=== PATIENT | female | born 1980 | race Caucasian/White ===

== ENCOUNTER 2022-09-26 06:13 | Observation (INO) ==
[2022-09-26] MEDS ORDERED: ONDANSETRON INJ 2 MG/ML 2 ML VIAL IV STA (06:33)
[2022-09-26] MEDS ORDERED: MoRPHine SULFATE 10 MG/ML CARP/VIAL IV STA ×2 (06:42→10:33)
[2022-09-26] MEDS ORDERED: SODIUM CHLORIDE 0.9% 1000ML 1,000 ML IV ONE ×2 (06:42→07:51)
--- NOTE | 2022-09-26 06:45 | Emergency Department Note ---
Impression & Plan Acute appendicitis, Leukocytosis ED Provider Note Name: SHAY BRANDON Age: 41 Sex: F Arrives Via: Walk-In Informant: Patient ED Provider: Micky Mcneil MD Chief Complaint: Abdominal pain Impression: As per impressions above Medical Decision Making: Pleasant 41-year-old female arrives for evaluation of abdominal pain. Primarily pain is upper abdomen though associate with nausea and dry heaves. She has upper abdominal tenderness palpation but also diffuse tenderness. She has a history of Rachele post fundoplication with splenectomy at that time. Laboratory work-up reveals a white blood cell count of 26. Initially a's ultrasound of the gallbladder was obtained which is unremarkable. She was sent over for CT of the abdomen pelvis which revealed acute appendicitis. Patient is comfortable throughout. She was given some IV fluids. In the setting of asplenia and elevated white blood cell count and infection I did obtain blood cultures and lactic acid. I will note she is not severe sepsis or septic shock at this time. She was given empiric IV Zosyn. She was kept comfortable with IV pain medications. Surgeon was consulted for further management. Triage/Nursing Notes reviewed by Me Differentials: Cholecystitis, Biliary Pathology, Pancreatitis, Appendicitis, diverticulitis, UTI, obstruction, mesenteric ischemia, aortic pathology, renal colic/infection, amongst others Vital Signs: reviewed and remarkable for no significant abnormalities Interventions: Normal saline bolus 1 L IV, Zosyn 4.5 g IV, Zofran IV, morphine IV x2 Labs:Reviewed and remarkable for white blood cell count 26,000 Imaging:CT of the ab pelvis with IV contrast as per radiologist report reveals acute appendicitis Ultrasound of the gallbladder no evidence of acute cholecystitis Consults:Dr Davis [place] Gen Surg Plan: Disposition:Taken to the OR Condition: Good History of Present Illness:41-year-old female arrives for evaluation of abdominal pain. Patient with sudden onset epigastric/right upper quadrant abdominal pain last evening at 9 PM. Associated with nausea, chills. She notes she has been dry heaving throughout the evening. Denies any falls, trauma, injuries. States she has a history of Niesen fundoplication with splenectomy. Still has her gallbladder and appendix. She denies previous pain like this. She does not drink alcohol. No medications prior to arrival. Nothing makes better or worse. Past History:He is in fundoplication with splenectomy Home Medications:none Allergies:erythromycin Vitals:Blood Pressure: 127/79, Pulse 73, RR 20, T 36.8C, O2 100% on RA Physical Exam: GENERAL: Patient is very uncomfortable appearing and in moderate distress. RESPIRATORY: No dyspnea. Clear to auscultation and equal bilaterally. No wheeze, no rhonchi. CARDIOVASCULAR: Regular rate and rhythm.No murmurs, rubs, gallops appreciated. GASTROINTESTINAL: Moderate epigastric tenderness palpation with mild right upper quadrant tenderness palpation as well as some mild diffuse tenderness throughout the rest of the abdomen EXTREMITIES: Normal motion all extremities, no cyanosis, no edema. NEUROLOGIC: Alert and oriented, no focal neurologic deficit appreciated SKIN: No rash, no jaundice, no diaphoresis. PSYCH: Appropriate GCS: 15 ED Course: Times/Reassessments: Patient is starting to feel better with IV pain medications though did end up requiring a second dose. Agreeable to hospitalization for appendectomy Micky Mcneil MD Past Med/Surg History Medical History (Updated 09/26/22 @ 12:52 by Micky Mcneil MD) COPD (chronic obstructive pulmonary disease) Surgical History (Updated 09/26/22 @ 11:22 by Baldo Iniguez MD) History of Rachele fundoplication Hx of splenectomy Social History Smoking Status: Never smoker Preferred Language: Bengali Feels Safe at Home: Yes Allergies Allergies Allergy/AdvReac Type Severity Reaction Status Date / Time azithromycin Allergy Gastrointestinal Verified 09/26/22 09:09 Upset Home Meds Home Medications Medication Instructions Recorded Confirmed albuterol sulfate 90 mcg/actuation 90 mcg inhalation DIRECTED PRN 09/26/22 09/26/22 aerosol inhaler Shortness Of Breath Or Wheezing Results & Data (ED) Vital Signs Vital Signs - 24 hr 09/26/22 06:25 09/26/22 06:59 09/26/22 08:00 Temperature 36.8 C Temperature Source Oral Pulse Rate 73 78 Pulse Rate [Apical] 55 L Pulse Rhythm [Apical] Pulse Strength [Apical] Respiratory Rate 20 16 Respiratory Effort / Characteristics Non-Labored Spontaneous Non-Labored Respiratory Depth Normal Normal Respiratory Pattern Regular Blood Pressure 127/79 Blood Pressure [Left Arm] 113/57 L Blood Pressure Mean 95 Blood Pressure Mean [Left Arm] 75 Blood Pressure Position [Left Arm] Lying Pulse Oximetry 100 99 Oxygen Delivery Method Room Air Room Air Oxygen Flow Rate Sepsis Recent Fever Within 48 Hours No Sepsis New/Unexplained Change in Mental Status No Sepsis Action Taken by Nursing No Action Required 09/26/22 10:45 09/26/22 10:00 09/26/22 10:55 Temperature Temperature Source Pulse Rate 68 Pulse Rate [Apical] 68 83 Pulse Rhythm [Apical] Pulse Strength [Apical] Respiratory Rate 18 18 18 Respiratory Effort / Characteristics Non-Labored Spontaneous Non-Labored Respiratory Depth Normal Normal Respiratory Pattern Regular Regular Blood Pressure 114/78 Blood Pressure [Left Arm] 114/78 124/89 Blood Pressure Mean Blood Pressure Mean [Left Arm] 90 100 Blood Pressure Position [Left Arm] Lying Lying Pulse Oximetry 97 98 97 Oxygen Delivery Method Room Air Room Air Room Air Oxygen Flow Rate Sepsis Recent Fever Within 48 Hours Sepsis New/Unexplained Change in Mental Status Sepsis Action Taken by Nursing 09/26/22 12:26 09/26/22 12:35 09/26/22 12:45 Temperature 36.2 C L Temperature Source Temporal Artery Scan Pulse Rate Pulse Rate [Apical] 88 77 77 Pulse Rhythm [Apical] Regular Regular Regular Pulse Strength [Apical] Normal Normal Normal Respiratory Rate 14 18 18 Respiratory Effort / Characteristics Non-Labored Spontaneous Non-Labored Spontaneous Non-Labored Spontaneous Respiratory Depth Normal Normal Normal Respiratory Pattern Regular Regular Regular Blood Pressure Blood Pressure [Left Arm] 112/72 104/63 109/64 Blood Pressure Mean Blood Pressure Mean [Left Arm] 85 76 79 Blood Pressure Position [Left Arm] Semi-fowlers Semi-fowlers Semi-fowlers Pulse Oximetry 100 100 99 Oxygen Delivery Method Oxymask Oxymask Room Air Oxygen Flow Rate 6 6 Sepsis Recent Fever Within 48 Hours Sepsis New/Unexplained Change in Mental Status Sepsis Action Taken by Nursing Laboratory Data 09/26/22 06:41 09/26/22 06:41 Lab Results 09/26/22 09/26/22 09/26/22 Range/Units 06:41 06:41 06:41 WBC 26.48 H (4.8-10.8) K/ul RBC 4.12 L (4.20-5.40) M/uL Hgb 14.0 (12.0-16.0) g/dl Hct 40.2 (37.0-47.0) % MCV 97.6 (80.0-100.0) fL MCH 34.0 (25.0-34.0) pg MCHC 34.8 (32.0-36.0) g/dL RDW Std Deviation 44.9 (36.4-46.3) fL RDW Coeff of Jacek 12.6 (11.5-14.5) % Plt Count 407 H (130-400) K/uL MPV 10.0 (9.4-12.4) fL Immature Gran % (Auto) 0.5 % Neut % (Auto) 83.8 % Lymph % (Auto) 11.0 % [place] % (Auto) 4.3 % Eos % (Auto) 0.0 % Baso % (Auto) 0.4 % Neut # (Auto) 22.18 H (1.40-6.50) K/uL Lymph # (Auto) 2.90 (1.2-3.4) K/uL [place] # (Auto) 1.14 H (0.11-0.59) K/uL Eos # (Auto) 0.01 (0-0.50) K/uL Baso # (Auto) 0.11 (0-0.2) K/uL Immature Gran # (Auto) 0.14 (0.01-0.20) K/uL Sodium 135 L (136-145) mmol/L Potassium 3.6 (3.5-5.1) mmol/L Chloride 103 (98-107) mmol/L Carbon Dioxide 24 (21-32) mmol/L Anion Gap 8 (3-11) BUN 14 (6-23) mg/dl Creatinine 0.67 (0.6-1.2) mg/dl Est Cr Clr Drug Dosing Not Reportable Est GFR ( Amer) 127.4 ml/min Est GFR (Non-Af Amer) 110.0 ml/min BUN/Creatinine Ratio 20.9 H (10-20) Glucose 137 H (70-99(Fasting)) mg/dl Lactate (0.4-2.0) mmol/L Calcium 9.9 (8.6-10.3) mg/dl Total Bilirubin 0.6 (0.2-1.0) mg/dl AST 41 H (13-39) U/L ALT 48 (7-52) U/L Alkaline Phosphatase 110 H (34-104) U/L Total Protein 8.1 (6.0-8.3) gm/dl Albumin 4.6 (3.4-5.0) gm/dl Globulin 3.5 (2.5-4.0) gm/dl Albumin/Globulin Ratio 1.3 (0.9-2) Lipase 26 (11-82) U/L Procalcitonin (0-0.5) ng/ml HCG, Qual Negative (Negative) Urine Color Urine Appearance (Clear) Urine pH (4.5-7.5) Ur Specific [place] (1.000-1.030) Urine Protein (Negative) Urine Glucose (UA) (Negative) Urine Ketones (Negative) Urine Blood (Negative) Urine Nitrite (Negative) Urine Bilirubin (Negative) Urine Urobilinogen (Negative) Ur Leukocyte Esterase (Negative) 09/26/22 09/26/22 09/26/22 Range/Units 08:10 08:24 08:24 WBC (4.8-10.8) K/ul RBC (4.20-5.40) M/uL Hgb (12.0-16.0) g/dl Hct (37.0-47.0) % MCV (80.0-100.0) fL MCH (25.0-34.0) pg MCHC (32.0-36.0) g/dL RDW Std Deviation (36.4-46.3) fL RDW Coeff of Jacek (11.5-14.5) % Plt Count (130-400) K/uL MPV (9.4-12.4) fL Immature Gran % (Auto) % Neut % (Auto) % Lymph % (Auto) % [place] % (Auto) % Eos % (Auto) % Baso % (Auto) % Neut # (Auto) (1.40-6.50) K/uL Lymph # (Auto) (1.2-3.4) K/uL [place] # (Auto) (0.11-0.59) K/uL Eos # (Auto) (0-0.50) K/uL Baso # (Auto) (0-0.2) K/uL Immature Gran # (Auto) (0.01-0.20) K/uL Sodium (136-145) mmol/L Potassium (3.5-5.1) mmol/L Chloride (98-107) mmol/L Carbon Dioxide (21-32) mmol/L Anion Gap (3-11) BUN (6-23) mg/dl Creatinine (0.6-1.2) mg/dl Est Cr Clr Drug Dosing Est GFR ( Amer) ml/min Est GFR (Non-Af Amer) ml/min BUN/Creatinine Ratio (10-20) Glucose (70-99(Fasting)) mg/dl Lactate 1.8 (0.4-2.0) mmol/L Calcium (8.6-10.3) mg/dl Total Bilirubin (0.2-1.0) mg/dl AST (13-39) U/L ALT (7-52) U/L Alkaline Phosphatase (34-104) U/L Total Protein (6.0-8.3) gm/dl Albumin (3.4-5.0) gm/dl Globulin (2.5-4.0) gm/dl Albumin/Globulin Ratio (0.9-2) Lipase (11-82) U/L Procalcitonin 0.08 (0-0.5) ng/ml HCG, Qual (Negative) Urine Color Yellow Urine Appearance Clear (Clear) Urine pH 6.5 (4.5-7.5) Ur Specific [place] 1.010 (1.000-1.030) Urine Protein Negative (Negative) Urine Glucose (UA) Negative (Negative) Urine Ketones Negative (Negative) Urine Blood Negative (Negative) Urine Nitrite Negative (Negative) Urine Bilirubin Negative (Negative) Urine Urobilinogen Negative (Negative) Ur Leukocyte Esterase Negative (Negative) Administered Medications Discontinued Medications Bupivacaine HCl/Epinephrine Bitart (Bupivacaine/Epinephrine 0.5% Mpf 1:200,000 30 Ml Vial) Confirm Administered Dose 30 ml .ROUTE .STK-MED ONE Stop: 09/26/22 09:34 Last Admin: 09/26/22 11:59 Dose: 30 ml Documented By: LONG Sodium Chloride (Nss 1000ml) 1,000 mls @ 999 mls/hr IV .Q1H1M ONE Stop: 09/26/22 07:42 Last Infusion: 09/26/22 07:56 Dose: 0 mls/hr Documented By: Admin: 09/26/22 06:47 Dose: 999 mls/hr Documented By: ELVI Piperacillin Sod/Tazobactam Sod (Zosyn) 4.5 gm in 120 mls @ 240 mls/hr IV NOW ONE Stop: 09/26/22 08:20 Last Infusion: 09/26/22 10:30 Dose: 0 mls/hr Documented By: Admin: 09/26/22 10:03 Dose: 240 mls/hr Documented By: SERGE Sodium Chloride (Nss 1000ml) 1,000 mls @ 999 mls/hr IV .Q1H1M ONE Stop: 09/26/22 08:51 Last Infusion: 09/26/22 10:30 Dose: 0 mls/hr Documented By: Admin: 09/26/22 07:58 Dose: 999 mls/hr Documented By: SERGE Ioversol (Optiray 320 100ml) 94 ml IV ONCE ONE Stop: 09/26/22 08:19 Last Admin: 09/26/22 08:18 Dose: 94 ml Documented By: GAIL Morphine Sulfate (Morphine Sulfate 10 Mg/Ml Carp/Vial) 6 mg IV NOW STA Stop: 09/26/22 06:43 Last Admin: 09/26/22 06:47 Dose: 6 mg Documented By: ELVI Morphine Sulfate (Morphine Sulfate 10 Mg/Ml Carp/Vial) 6 mg IV NOW STA Stop: 09/26/22 10:34 Last Admin: 09/26/22 10:39 Dose: 6 mg Documented By: JULI Ondansetron HCl (Ondansetron Inj 2 Mg/Ml 2 Ml Vial) 4 mg IV NOW STA Stop: 09/26/22 06:34 Last Admin: 09/26/22 06:47 Dose: 4 mg Documented By: ELVI Imaging Data Radiologist's Impression: Gallbladder Ultrasound 09/26/22 06:42 US gallbladder CLINICAL HISTORY: RUQ/Epigastric pain TECHNIQUE: Multiple real-time sonographic images of the right upper quadrant were obtained. Comparison: None available at the time of this dictation. FINDINGS: The liver is diffusely homogenous with normal contour and echogenicity. No focal mass lesions are seen. No intrahepatic ductal dilatation is seen. No gallstones or sludge are identified within the gallbladder. The gallbladder wall is not thickened. There is no pericholecystic fluid present. A sonographic Rico's sign was not elicited by the bedspread inspector. The common duct measures 0.4 cm in diameter at the level of the hepatic artery. The visualized portions of the pancreas appear normal. The right kidney shows normal echogenicity, cortical thickness and renal contour. The right kidney shows no evidence of hydronephrosis or mass. No ascites or free fluid is seen in Pichardo's pouch. IMPRESSION: Unremarkable right upper quadrant ultrasound. ACT 112: Negative or not required by law. Electronically signed by: Brent Nugyen M.D. 09/26/2022 8:20 AM Abdomen/Pelvis CT 09/26/22 07:52 CT abd pelvis IV con only CLINICAL HISTORY: upper abdominal pain, fever, wbc elevation TECHNIQUE: Helical axial images of the abdomen and pelvis were obtained and displayed. Automated dose lowering techniques and/or adjustment according to patient size were utilized for this exam. This exam was performed with intravenous contrast. CT DOSE: 1447.08 mGy.cm COMPARISON: None available at the time of this dictation. FINDINGS: Lower chest: No acute abnormality. Liver: Unremarkable. No focal lesions are seen. Gallbladder and biliary tree: No calcified gallstones. Normal caliber wall. No intra- or extrahepatic biliary ductal dilation. Pancreas: Unremarkable, no focal lesions. Spleen: Patient appears to be status post splenectomy with a tiny residual splenule. Adrenals: Unremarkable. Kidneys and ureters: Unremarkable. Bladder: Unremarkable. Reproductive organs: Uterus is retroverted. Bowel: The appendix is dilated to 13 mm with a small amount of surrounding fat stranding. There is a moderate hiatal hernia in this patient with history of Rachele fundoplication. Lymph nodes Retroperitoneal: Unremarkable. Pelvic: Unremarkable. Mesenteric: Nodes are seen in the right lower quadrant. Peritoneum: Normal. Vessels: Unremarkable. Abdominal wall: A fat-containing umbilical hernia is seen. Bones: Degenerative changes in the visualized spine. IMPRESSION: Findings compatible with appendicitis without abscess or perforation. ACT 112: Negative or not required by law. Electronically signed by: Brent Nguyen M.D. 09/26/2022 8:39 AM Discharge Plan Visit Data Chief Complaint: Abdominal Pain Stated Complaint: ABD PAIN, CHILLS, NAUSEA ED Provider: Micky Mcneil Discharge Problem: Acute appendicitis, Leukocytosis Discharge Instructions Interventions: ED Discharge Assessment Last Done: 09/26/22 10:55 Forms Stand Alone Forms: [employer] Prescriptions Prescriptions: No Action albuterol sulfate 90 mcg/actuation HFA aerosol inhaler 90 mcg INHALATION DIRECTED PRN (Reason: Shortness Of Breath Or Wheezing) Referrals Referrals: PCP,NO [Physician] -
[2022-09-26 07:07] LABS: Hematocrit (blood only) 40.2 % (37.0-47.0); Mean Corpuscular Hgb Conc 34.8 g/dL (32.0-36.0); Mean Corpuscular Volume 97.6 fL (80.0-100.0); Platelet Count 407 K/uL (130-400); RDW Coefficient of Variation 12.6 % (11.5-14.5); RDW Standard Deviation 44.9 fL (36.4-46.3); Red Blood Count 4.12 M/uL (4.20-5.40); White Blood Count 26.48 K/ul (4.8-10.8)
[2022-09-26 07:23] LABS: Alanine Aminotransferase 48 U/L (7-52); Albumin Globulin Ratio 1.3 (0.9-2); Albumin Level 4.6 gm/dl (3.4-5.0); Alkaline Phosphatase 110 U/L (34-104); Anion Gap 8 (3-11); Aspartate Aminotransferase 41 U/L (13-39); BUN Creatinine Ratio 20.9 (10-20); Bilirubin,Total 0.6 mg/dl (0.2-1.0); Blood Urea Nitrogen 14 mg/dl (6-23); Calcium 9.9 mg/dl (8.6-10.3); Carbon Dioxide 24 mmol/L (21-32); Chloride 103 mmol/L (98-107); Est GFR (African American) 127.4 ml/min; Globulin 3.5 gm/dl (2.5-4.0); Glucose 137 mg/dl (70-99(Fasting)); Lipase 26 U/L (11-82); Potassium 3.6 mmol/L (3.5-5.1); Sodium 135 mmol/L (136-145); Total Protein 8.1 gm/dl (6.0-8.3)
[2022-09-26 07:24] LABS: Pregnancy Test, Serum Negative (Negative)
[2022-09-26 07:35] LABS: Basophils # (auto) 0.11 K/uL (0-0.2); Basophils % (auto) 0.4 %; Eosinophils # (auto) 0.01 K/uL (0-0.50); Immature Granulocytes # (auto) 0.14 K/uL (0.01-0.20); Immature Granulocytes % (auto) 0.5 %; Monocytes # (auto) 1.14 K/uL (0.11-0.59); Monocytes % (auto) 4.3 %; Neutrophils # (auto) 22.18 K/uL (1.40-6.50); Neutrophils % (auto) 83.8 %
[2022-09-26] MEDS ORDERED: PIPERACILLIN/TAZOBACTAM 4.5 GM/120 ML BAG IV ONE (07:51)
[2022-09-26] MEDS ORDERED: OPTIRAY 320 100ml IV ONE (08:18)
--- NOTE | 2022-09-26 08:21 | Ultrasound Report ---
US gallbladder CLINICAL HISTORY: RUQ/Epigastric pain TECHNIQUE: Multiple real-time sonographic images of the right upper quadrant were obtained. Comparison: None available at the time of this dictation. FINDINGS: The liver is diffusely homogenous with normal contour and echogenicity. No focal mass lesions are see n. No intrahepatic ductal dilatation is seen. No gallstones or sludge are identified within the g allbladder. The gallbladder wall is not thickened. There is no pericholecystic fluid present. A sonog raphic Rico's sign was not elicited by the lacquerer. The common duct measures 0.4 cm in diamet er at the level of the hepatic artery. The visualized portions of the pancreas appear normal. The right kidney shows normal echogenicity, cortical thickness and renal contour. The right kidney sh ows no evidence of hydronephrosis or mass. No ascites or free fluid is seen in Pichardo's pouch. IMPRESSION: Unremarkable right upper quadrant ultrasound. ACT 112: Negative or not required by law. Electronically signed by: Brent Nguyen M.D. 09/26/2022 8:20 AM
[2022-09-26 08:33] LABS: Appearance Urine Clear (Clear); Bilirubin Urine Negative (Negative); Blood Urine Negative (Negative); Color Urine Yellow; Glucose Urine UA Negative (Negative); Ketones Urine Negative (Negative); Leukocyte Esterase Urine Negative (Negative); Nitrite Urine Negative (Negative); Protein Urine Negative (Negative); Urobilinogen Urine Negative (Negative); pH Urine 6.5 (4.5-7.5)
--- NOTE | 2022-09-26 08:41 | CT Scan Report ---
CT abd pelvis IV con only CLINICAL HISTORY: upper abdominal pain, fever, wbc elevation TECHNIQUE: Helical axial images of the abdomen and pelvis were obtained and displayed. Automated dose lowering techniques and/or adjustment according to patient size were utilized for this exam. This e xam was performed with intravenous contrast. CT DOSE: 1447.08 mGy.cm COMPARISON: None available at the time of this dictation. FINDINGS: Lower chest: No acute abnormality. Liver: Unremarkable. No focal lesions are seen. Gallbladder and biliary tree: No calcified gallstones. Normal caliber wall. No intra- or extrahepatic biliary ductal dilation. Pancreas: Unremarkable, no focal lesions. Spleen: Patient appears to be status post splenectomy with a tiny residual splenule. Adrenals: Unremarkable. Kidneys and ureters: Unremarkable. Bladder: Unremarkable. Reproductive organs: Uterus is retroverted. Bowel: The appendix is dilated to 13 mm with a small amount of surrounding fat stranding. There is a moderate hiatal hernia in this patient with history of Rachele fundoplication. Lymph nodes Retroperitoneal: Unremarkable. Pelvic: Unremarkable. Mesenteric: Nodes are seen in the right lower quadrant. Peritoneum: Normal. Vessels: Unremarkable. Abdominal wall: A fat-containing umbilical hernia is seen. Bones: Degenerative changes in the visualized spine. IMPRESSION: Findings compatible with appendicitis without abscess or perforation. ACT 112: Negative or not required by law. Electronically signed by: Brent Nguyen M.D. 09/26/2022 8:39 AM
--- NOTE | 2022-09-26 09:18 | History & Physical Report ---
Date of Service September 26, 2022 Assessment & Plan (1) Acute appendicitis: Plan: Discussed her diagnosis as well as options. Recommend laparoscopic appendectomy. Discussed the risks which include bleeding, infection, injury to another organ, DVT, PE, VA, CVA etc. Following our discussion I answered all of her questions. She agrees with the plan. We will proceed this morning with laparoscopic appendectomy. History of Present Illness Primary Care Provider: Beata Lopez PA-C 41-year-old female who began having generalized abdominal pain yesterday. It is progressed and now is located towards the right lower quadrant. She also had some nausea. Work-up in the emergency room shows a leukocytosis as well as acute appendicitis. Allergies Allergy/AdvReac Type Severity Reaction Status Date / Time azithromycin Allergy Gastrointestinal Verified 09/26/22 09:09 Upset Home Medications Medication Instructions Recorded Confirmed Type albuterol sulfate 90 mcg/actuation 90 mcg inhalation DIRECTED PRN 09/26/22 09/26/22 History aerosol inhaler Shortness Of Breath Or Wheezing Past Med/Surg History Social History Smoking Status: Never smoker Preferred Language: Mauritian Feels Safe at Home: Yes Review of Systems All systems reviewed & are unremarkable except as noted in HPI & below Physical Exam Constitutional: WD/WN, vitals as above no acute distress and not ill appearing Eyes: PERRL, conjunctivae normal, anicteric sclerae EOM intact bilaterally ENMT: external ear and nose normal, oropharynx normal Ears: no hearing impairment Neck: trachea midline, no thyromegaly Respiratory: normal respiratory effort; no respiratory distress and does not use accessory muscles Cardiovascular: Rate/Rhythm: regular rate and regular rhythm Gastrointestinal (Abdomen): Soft. Diffuse tenderness with exquisite tenderness in the right lower quadrant. Positive guarding. Well-healed upper midline incision Skin: no rashes, warm and dry Psychiatric: Orientation: alert, oriented x 3 and cooperative Results & Data Vital Signs (Past 12 Hours) Vital Signs Temp Pulse Pulse Resp BP BP Pulse Ox 09/26/22 08:00 55 L 16 113/57 L 99 09/26/22 06:59 78 09/26/22 06:25 36.8 C 73 20 127/79 100 O2 Del Method 09/26/22 08:00 Room Air 09/26/22 06:59 09/26/22 06:25 Room Air
[2022-09-26] MEDS ORDERED: BUPIVACAINE/EPINEPHRINE 0.5% MPF 1:200,000 30 ML VIAL ONE (09:33)
[2022-09-26] MEDS ORDERED: ACETAMINOPHEN 1000 MG/100 ML IV IV ONE (09:45)
[2022-09-26] MEDS ORDERED: FAMOTIDINE/PF 20 MG/2 ML VIAL IV ONE (09:45)
--- NOTE | 2022-09-26 10:23 | Anesthesiology Consultation ---
Date of Service September 26, 2022 Assessment & Plan (1) Encounter for pre-operative examination: Chart Review Chart Review: Acceptable Risk for Surgery History Surgery Operation Date: 09/26/22 08:45 Proposed Procedures p Laparoscopic Appendectomy - Chay Davis DO Height/Weight Height: 5 ft 7 in Weight: 81.647 kg Allergies Allergy/AdvReac Type Severity Reaction Status Date / Time azithromycin Allergy Gastrointestinal Verified 09/26/22 09:09 Upset Medications Home Medications Medication Instructions Recorded Confirmed Last Taken albuterol sulfate 90 mcg/actuation 90 mcg inhalation DIRECTED PRN 09/26/22 09/26/22 Unknown aerosol inhaler Shortness Of Breath Or Wheezing NPO Date Last Intake of Fluids: 09/26/22 Time Last Intake of Fluids: 00:00 Date Last Intake of Solids: 09/25/22 Time Last Intake of Solids: 19:00 Past Medical History Medical History (Updated 09/26/22 @ 10:24 by Baldo Iniguez MD) Asthma Past Surgical History Surgical History (Updated 09/26/22 @ 10:23 by Baldo Iniguez MD) No pertinent past surgical history Social History Smoking Status: Never smoker Physical Exam Vital Signs Last Vital Signs Temp 36.8 C 09/26/22 06:25 Pulse 83 09/26/22 10:00 Resp 18 09/26/22 10:00 BP 124/89 09/26/22 10:00 Pulse Ox 98 09/26/22 10:00 O2 Del Method Room Air 09/26/22 10:00 Testing Laboratory Results 09/26/22 06:41 09/26/22 06:41 Urine Color Yellow 09/26/22 08:10 Urine Appearance Clear (Clear) 09/26/22 08:10 Urine pH 6.5 (4.5-7.5) 09/26/22 08:10 Ur Specific [place] 1.010 (1.000-1.030) 09/26/22 08:10 Urine Protein Negative (Negative) 09/26/22 08:10 Urine Glucose (UA) Negative (Negative) 09/26/22 08:10 Urine Ketones Negative (Negative) 09/26/22 08:10 Urine Nitrite Negative (Negative) 09/26/22 08:10 Ur Leukocyte Esterase Negative (Negative) 09/26/22 08:10 qualitative hcg negative
[2022-09-26] MEDS ORDERED: MIDAZOLAM HCL 1 MG/ML 2ML VIAL ONE (11:18)
[2022-09-26] MEDS ORDERED: fentaNYL citrate PF 100 MCG/2 ML VIAL ONE (11:18)
[2022-09-26] MEDS ORDERED: PROMETHAZINE HCL 6.25 MG in SODIUM CHLORIDE 0.9% 50 ML IV PRN (11:22)
[2022-09-26] MEDS ORDERED: KETOROLAC 30 MG/ML VIAL IV PRN (11:22)
[2022-09-26] MEDS ORDERED: ONDANSETRON INJ 2 MG/ML 2 ML VIAL IV PRN (11:22)
[2022-09-26] MEDS ORDERED: ATROPINE SULFATE 0.1 MG/ML 10ML SYR IV PRN (11:22)
[2022-09-26] MEDS ORDERED: PROPOFOL IV EMULSION 10 MG/ML 20 ML VIAL IV ONE (11:48)
[2022-09-26] MEDS ORDERED: PHENYLEPHRINE HCL 10 MG/ML VIAL ONE (11:48)
[2022-09-26] MEDS ORDERED: DEXAMETHASONE SOD INJ 4 MG/ML VIAL ONE (11:48)
[2022-09-26] MEDS ORDERED: ROCURONIUM BROMIDE 10 MG/ML 5 ML VIAL IV ONE (11:48)
[2022-09-26] MEDS ORDERED: ONDANSETRON INJ 2 MG/ML 2 ML VIAL ONE (11:48)
[2022-09-26] MEDS ORDERED: LIDOCAINE 2% 2 ML VIAL/AMP(20MG/ML) INFIL ONE (11:48)
[2022-09-26] MEDS ORDERED: METOCLOPRAMIDE HCL INJ 5 MG/ML 2 ML VIAL ONE (11:48)
[2022-09-26] MEDS ORDERED: GLYCOPYRROLATE 0.2 MG/ML VIAL ONE (12:08)
[2022-09-26] MEDS ORDERED: NEOSTIGMINE METHYLSULFATE 1 MG/ML 10ML VIAL ONE (12:08)
--- NOTE | 2022-09-26 12:30 | Operative Report ---
PG Post Operative Report Pre & Post Diagnosis Operation Date: 09/26/22 08:45 Pre-Op Diagnosis: Appendicitis Umbilical hernia Post-Op Diagnosis: Appendicitis Umbilical hernia I identified the patient and participated in the time-out.: Yes Procedure Operation Date: 09/26/22 08:45 Actual Procedures p Laparoscopic Appendectomy(Not Applicable) - Chay Davis DO s Umbilical Hernia Repair(Not Applicable) - Chay Davis DO Surgeon Chay Davis DO Automotive Service Director n/a Estimated Blood Loss 5 Findings Consistent with Post-Op Diagnosis Specimens appendix Description of Procedure After informed consent was obtained the patient was taken to the operating room and placed in the supine position. After successful intubation a Alves catheter was placed and the abdomen was sterilely prepped and draped in usual fashion. I began with a curvilinear infraumbilical incision with an 11 blade scalpel. This was carried down through the soft tissue using cautery. A Bhakti clamp was used to come around the superior aspect of the umbilicus. The umbilical stalk was taken down using cautery exposing a 1.5 cm hernia defect. 0 Vicryl stay sutures were placed on either side of the fascial defect. Blunt finger penetration was used to enter the peritoneum. A 12 mm [place] trocar was advanced and the abdome n was insufflated to 18 mmHg. The laparoscope was inserted and the abdomen examined 360 degrees. I placed a suprapubic 5 mm port and a left lower quadrant 12 mm port under direct vision. The patient was placed in a Trendelenburg position and slightly airplaned to the left. We readily identified the appendix and it was grossly inflamed. It had not perforated. I was able to peel it off of the right lower quadrant sidewall. A [place] dissector was used to make a window in the mesentery of the appendix and the appendix was transected from its base at the cecum using a BERTIN 60 mm brown cartridge stapler. Another brown cartridge stapler was then used to transect the mesentery of the appendix. The appendix was placed into an Endo Catch bag and removed from the camera port site. There was a small amount of fluid in the pelvis as well as right lower quadrant. This was irrigated and suctioned out. There was adequate hemostasis. The pelvic organs looked normal. No other gross abnormality was identified. I ran the small bowel backward from the ileocecal valve for about 6 feet again no other gross abnormalities. The trocars were all removed. The abdomen was desufflated. The fascia of the umbilical hernia was closed using #1 Ethibond in simple erupted fashion. The umbilical stalk was reattached using 0 Vicryl. All the wounds were irrigated. The hernia site was closed using 3-0 Vicryl for deep layers and 4-0 Monocryl for skin. The fascia of the left lower quadrant incision was also closed using 0 Vicryl. The skin of the 2 lower incisions were both closed using 4-0 Monocryl. Marcaine with epinephrine was injected around all the incision for postoperative analgesia and skin glue used as a dressing. The patient was awakened extubated and transferred recovery in stable condition. I attest to the content of the Intraoperative Record and any orders documented therein. Any exceptions are noted below.
[2022-09-26] MEDS ORDERED: KETOROLAC 30 MG/ML VIAL ONE (12:32)
[2022-09-26] MEDS: fentaNYL citrate PF 100 MCG/2 ML VIAL IV PRN ×2 (12:49→12:54)
--- NOTE | 2022-09-26 12:56 | Anesthesiology Progress Note ---
Date of Service September 26, 2022 Anesthesia Post Procedure Vital Signs Vital Signs: Temp Pulse Pulse Resp BP BP Pulse Ox 09/26/22 12:45 77 18 109/64 99 09/26/22 12:35 77 18 104/63 100 09/26/22 12:26 36.2 C L 88 14 112/72 100 09/26/22 10:55 68 18 114/78 97 09/26/22 10:00 83 18 124/89 98 09/26/22 10:45 68 18 114/78 97 09/26/22 08:00 55 L 16 113/57 L 99 09/26/22 06:59 78 09/26/22 06:25 36.8 C 73 20 127/79 100 O2 Del Method O2 Flow Rate 09/26/22 12:45 Room Air 09/26/22 12:35 Oxymask 6 09/26/22 12:26 Oxymask 6 09/26/22 10:55 Room Air 09/26/22 10:00 Room Air 09/26/22 10:45 Room Air 09/26/22 08:00 Room Air 09/26/22 06:59 09/26/22 06:25 Room Air Pain Intensity Abdomen: Pain Intensity: 4 Transfer of Care Handoff Completed per policy Notes Mental Status: alert / awake / arousable Patient Amnestic to Procedure: Yes Nausea / Vomiting: adequately controlled Pain: adequately controlled Airway Patency, RR, SpO2: stable & adequate BP & HR: stable & adequate Hydration State: stable & adequate Anesthetic Complications: no major complications apparent
[2022-09-26] MEDS ORDERED: ALBUTEROL HFA 8 GM INHALER INH PRN (13:23)
[2022-09-26] MEDS ORDERED: ONDANSETRON 4 MG OD TAB PO PRN (13:23)
[2022-09-26] MEDS ORDERED: IBUPROFEN 600 MG TAB PO PRN (13:23)
[2022-09-26] MEDS ORDERED: HYDROmorphone INJ 0.5 MG/0.5 ML SYR IV PRN ×2 (13:23)
[2022-09-26] MEDS: ACETAMINOPHEN 500 MG TAB PO SCH ×2 (13:37→20:32)
[2022-09-26] MEDS: SODIUM CHLORIDE 0.9% 1000ML 1,000 ML IV SCH ×2 (13:37→22:55)
[2022-09-26 14:15] LABS: Basophils # (auto) 0.05 K/uL (0-0.2); Basophils % (auto) 0.2 %; Eosinophils # (auto) 0.02 K/uL (0-0.50); Eosinophils % (auto) 0.1 %; Hematocrit (blood only) 33.3 % (37.0-47.0); Hemoglobin 11.7 g/dl (12.0-16.0); Immature Granulocytes % (auto) 0.5 %; Lymphocytes # (auto) 1.78 K/uL (1.2-3.4); Lymphocytes % (auto) 8.7 %; Mean Corpuscular Hemoglobin 33.8 pg (25.0-34.0); Mean Corpuscular Hgb Conc 35.1 g/dL (32.0-36.0); Mean Corpuscular Volume 96.2 fL (80.0-100.0); Mean Platelet Volume 9.6 fL (9.4-12.4); Monocytes # (auto) 0.76 K/uL (0.11-0.59); Monocytes % (auto) 3.7 %; Neutrophils # (auto) 17.81 K/uL (1.40-6.50); Neutrophils % (auto) 86.8 %; Platelet Count 340 K/uL (130-400); RDW Coefficient of Variation 12.6 % (11.5-14.5); RDW Standard Deviation 44.6 fL (36.4-46.3); Red Blood Count 3.46 M/uL (4.20-5.40); White Blood Count 20.52 K/ul (4.8-10.8)
[2022-09-26] MEDS: ceFAZolin 2000MG 2,000 MG/15 ML SYR IV SCH ×2 (14:18→20:32)
[2022-09-26] MEDS: oxyCODONE HCL IR 5 MG TAB (IMMEDIATE RELEASE) PO PRN ×2 (16:05→20:32)
[2022-09-26] MEDS ORDERED: Nursing to Pharmacy Communication SCH (19:45)
[2022-09-27] MEDS: oxyCODONE HCL IR 5 MG TAB (IMMEDIATE RELEASE) PO PRN ×3 (01:41→12:29)
[2022-09-27] MEDS ORDERED: Nursing to Pharmacy Communication SCH (03:00)
[2022-09-27] MEDS: ACETAMINOPHEN 500 MG TAB PO SCH (04:48)
[2022-09-27] MEDS: ceFAZolin 2000MG 2,000 MG/15 ML SYR IV SCH (04:48)
[2022-09-27 07:23] LABS: Basophils # (auto) 0.05 K/uL (0-0.2); Basophils % (auto) 0.3 %; Hematocrit (blood only) 32.3 % (37.0-47.0); Hemoglobin 11.1 g/dl (12.0-16.0); Immature Granulocytes # (auto) 0.11 K/uL (0.01-0.20); Immature Granulocytes % (auto) 0.6 %; Lymphocytes # (auto) 3.04 K/uL (1.2-3.4); Lymphocytes % (auto) 16.5 %; Mean Corpuscular Hemoglobin 33.3 pg (25.0-34.0); Mean Corpuscular Hgb Conc 34.4 g/dL (32.0-36.0); Mean Platelet Volume 10.2 fL (9.4-12.4); Monocytes # (auto) 1.51 K/uL (0.11-0.59); Monocytes % (auto) 8.2 %; Neutrophils # (auto) 13.73 K/uL (1.40-6.50); Neutrophils % (auto) 74.4 %; Platelet Count 328 K/uL (130-400); RDW Standard Deviation 46.2 fL (36.4-46.3); Red Blood Count 3.33 M/uL (4.20-5.40); White Blood Count 18.44 K/ul (4.8-10.8)
--- NOTE | 2022-09-27 08:54 | Surgery Progress Note ---
Date of Service September 27, 2022 Assessment & Plan (1) Acute appendicitis: Plan: POD#1 laparoscopic appendectomy WBC trending down 18(20). Vitals arre stable and patient afebrile Expected post op pain which is tolerable Advancing diet as tolerates without n/v Plan on dispo to home today Dispo instructions reviewed, f/u in office with dr. meza in 2 weeks Admission and Anticipated Discharge Date Admission Date: September 26, 2022 Subjective Patient doing fine this AM. Reports having some pain along with gas pains overnight. Otherwise tolerating clear liquids. No n/v Physical Exam Physical Exam: awake/alert, no distress Gastrointestinal (Abdomen): Inspection/Auscultation: + abdominal surgical incision (c/d/i, skin glue); abdomen not distended Percussion/Palpation: + abdomen tender (expected burke incisional discomfort) Results & Data Vital Signs (Past 12 Hours) Vital Signs Temp Pulse Resp BP Pulse Ox O2 Del Method 09/27/22 06:46 36.6 C 61 16 103/64 97 Room Air 09/27/22 04:27 62 18 98 Room Air 09/27/22 03:54 37 C 54 L 16 110/70 98 Room Air 09/26/22 23:09 36.4 C L 56 L 18 108/63 97 Room Air PG Care Time/CCT Total # of Minutes Spent Total Time Spent with Patient: Total time spent is greater than 50% in coordination of care (as documented) at patient's floor/unit and/or counseling patient: Coding Level of Care Code 70239 Post Operative Follow-Up Diagnoses Acute appendicitis K35.30 Acute appendicitis type: with localized peritonitis Appendicitis abscess presence: without abscess Appendicitis gangrene presence: without gangrene Appendicitis perforation presence: without perforation (1) Acute appendicitis Acute appendicitis type: with localized peritonitis Appendicitis abscess presence: without abscess Appendicitis gangrene presence: without gangrene Appendicitis perforation presence: without perforation Qualified Code(s): K35.30 - Acute appendicitis with localized peritonitis, without perforation or gangrene
--- NOTE | 2022-09-29 14:59 | Discharge Summary ---
Date of Service September 27, 2022 Admission HPI Per Admitting Provider 41-year-old female who began having generalized abdominal pain yesterday. It is progressed and now is located towards the right lower quadrant. She also had some nausea. Work-up in the emergency room shows a leukocytosis as well as acute appendicitis. Principal Diagnosis acute appendicitis Discharge Exam awake/alert, no distress Gastrointestinal (Abdomen) Inspection/Auscultation: + abdominal surgical incision (c/d/i, skin glue); abdomen not distended Percussion/Palpation: + abdomen tender (expected burke incisional discomfort) Discharge Data Allergies Allergy/AdvReac Type Severity Reaction Status Date / Time azithromycin Allergy Gastrointestinal Verified 09/26/22 09:09 Upset Consultations 09/26/22 09:06 Consult General Surgery Stat Procedures Performed Operation Date: 09/26/22 08:45 Actual Procedures p Laparoscopic Appendectomy(Not Applicable) - Chay Davis DO s Umbilical Hernia Repair(Not Applicable) - Chay Davis DO Ordered Studies 09/26/22 06:42 US gallbladder Stat 09/26/22 07:52 CT abd pelvis IV con only Stat Hospital Course (1) Acute appendicitis: This is a 41yF who presented to the [facility] ED on 09/26/22 with abdominal pain. Workup in the ED showed a WBC of [address] a/p concerning for acute appendicitis. The patient was tender to palpation in the RLQ. Patient made NPO with IVF and booked for the OR. On 09/26 the patient went to the OR with Dr. Davis for a laparoscopic appendectomy. The patient tolerated the procedure well, see operative report for full details. Post operatively the patient's diet was advanced, pain managed on prn meds, and incisions clean/dry/intact. She was admitted for overnight observation. On POD#1 the patient was deemed stable for discharge to home. WBC 18. Pain controlled and diet tolerated. She was instructed to follow up in clinic within 2 weeks. Total Time Total Time Spent Total Time Spent (In Minutes): 10 Discharge Plan Discharge Items Patient Disposition: Home - Self-Care Reason For Visit: APPENDICITIS Discharge Diagnosis: acute appendicitis Activity: Per Instructions section Lifting: No more than 10 pounds Bathing Comment: may shower; no soaking in tubs/pools x 2 weeks Exercise/Sports: Wait until after follow-up appointment Driving/Machine Use: no driving while taking narcotics for pain Non-emergency contact: Surgeon Call non-emergency contact if: you have any medication questions, your symptoms worsen, your pain is unusual for you, you have a fever, your temperature is above 101.5, your wound has increased redness, your wound has increased drainage and your wound pain has increased Follow-up/Referrals: Chay Davis, [Surgeon] - 10/11/22 10:45 am ( ) Beata Lopez PA-C [Primary Care Provider] - Diet: Regular Addtl Attending Provider Instructions: You have skin glue over your incisions called dermabond. you may shower with this on. It will tend to dissolve and fall off within a couple weeks. Do not pick at the skin glue Pending Studies at Discharge: Yes Studies:: surgical pathology Stand-Alone Forms: My [facility] Element ID, Smoking Cessation Medications and DC Order Prescriptions: New oxycodone-acetaminophen [Percocet] 5-325 mg tablet 1 - 2 tab PO .q4-6h PRN (Reason: pain, for initial therapy, max 6 tabs per day) Qty: 15 0RF Continued albuterol sulfate 90 mcg/actuation HFA aerosol inhaler 90 mcg INHALATION DIRECTED PRN (Reason: Shortness Of Breath Or Wheezing) Discharge Orders: Discharge Order (Routine); Ordered 09/27/22 Ordered By: Olivia Ruiz Admission Data Admit Date/Time: 09/26/22 12:24 Attending Provider: Chay Davis Admit Provider: Chay Davis Primary Care Provider: Beata Lopez Other Providers: Chay Davis Other Interventions: Discharge Summary Assessment (RN) Last Done: 09/27/22 10:36 Coding Level of Care Code 57040 IN/OBS DISCH 30 MIN/LESS Diagnoses Acute appendicitis K35.30 Acute appendicitis type: with localized peritonitis Appendicitis abscess presence: without abscess Appendicitis gangrene presence: without gangrene Appendicitis perforation presence: without perforation
== END 2022-09-27 12:48 | disposition home or self-care (01) ==
LOC: ED 06:13 → 3W 06:13

== ENCOUNTER 2023-08-14 15:01 | Observation (INO) ==
--- NOTE | 2023-08-14 15:47 | Emergency Department Note ---
History of Present Illness General Chief complaint: Dental/Oral Stated complaint: DENTAL INFECTION, PAIN Time Seen by Provider: 08/14/23 15:36 History of Present Illness Maximum Pain Intensity: 10 This is a 42-year-old female with a history of splenectomy that presents to the emergency department via private vehicle with complaints of "left-sided facial pain, dental infection". The patient notes that this past Tuesday she began with left-sided facial pain, swelling originating from left posterior inferior molar region. This is overlying tooth #18, second molar. The patient states that she did present to a walk-in clinic that Tuesday and was started on penicillin. However, despite the antibiotics she continues with worsening symptoms. She does note fevers yesterday and today. She states that the tooth did break in the past but not recently. Patient notes allergy to azithromycin. She denies any trouble breathing or swallowing. Pain worsens when she attempts to eat. Home Medications Medication Instructions Recorded Confirmed Type albuterol sulfate 90 mcg/actuation 90 mcg inhalation DIRECTED PRN 09/26/22 08/14/23 History aerosol inhaler Shortness Of Breath Or Wheezing tiotropium bromide 1.25 2 puff inhalation QAM 03/16/23 08/14/23 History mcg/actuation mist for inhalation (Spiriva Respimat) Medical [facility] Card 1 dose inhalation UD PRN 04/08/23 08/14/23 History anxiety/ptsd penicillin V potassium 500 mg 500 mg PO BID 08/14/23 08/14/23 History tablet Allergies Allergy/AdvReac Type Severity Reaction Status Date / Time azithromycin AdvReac Intermediate Gastrointestinal Verified 08/14/23 16:52 Upset Past Med/Surg History Problem List (Updated 08/14/23 @ 19:42 by Jason Negrete PA-C) Dental infection (Acute) Cellulitis of face (Acute) Pain, dental Dental abscess Medical History PTSD (post-traumatic stress disorder) Anxiety GERD (gastroesophageal reflux disease) Liver spot found 1-2 yr ago/to monitor with u/s...currently past due. Per abdomen/pelvis CT 10/03/22= "Liver unremarkable- no focal lesions seen." High cholesterol COPD (chronic obstructive pulmonary disease) Surgical History Hx of splenectomy History of colonoscopy pt is unsure History of endoscopy History of tonsillectomy H/O umbilical hernia repair (09/26/22) p Laparoscopic Appendectomy(Not Applicable) - Chay Davis, DO s Umbilical Hernia Repair(Not Applicable) - Chay Davis DO History of laparoscopic appendectomy (09/26/22) p Laparoscopic Appendectomy(Not Applicable) - Chay Davis, DO s Umbilical Hernia Repair(Not Applicable) - Chay Davis DO History of Rachele fundoplication 2007 / spleen "nicked" - splenectomy. Family History Other Diabetes Heart disease Hypertension Social History Smoking Status: Former smoker Tobacco Type: Cigarettes Do You Dip or Chew Tobacco: No; Hx Alcohol Use: No Hx Substance Use: No Preferred Language: Yoruba Communication Ability: Effective Visual Impairment: No Limitations Senior Business Intelligence Analyst Required: No Beliefs That Will Affect Care: None Current Living Situation: Parent and Family Current Living Situation Comment: mom and daughter Feels Safe at Home: Yes Assistive Devices: Glasses Review of Systems A total of 10 systems reviewed and were otherwise negative Physical Exam Vital Signs Vital Signs - 24 hr 08/14/23 15:09 08/14/23 17:24 Temperature 36.5 C Temperature Source Temporal Artery Scan Pulse Rate 65 Pulse Rate [Apical] 79 Respiratory Rate 16 20 Respiratory Effort / Characteristics Non-Labored Spontaneous Non-Labored Spontaneous Respiratory Depth Normal Normal Blood Pressure 163/107 H Blood Pressure [Left Arm] 134/79 Blood Pressure Mean 125 Blood Pressure Mean [Left Arm] 97 Pulse Oximetry 98 97 Oxygen Delivery Method Room Air Room Air Sepsis Recent Fever Within 48 Hours No Sepsis New/Unexplained Change in Mental Status No Sepsis Action Taken by Nursing No Action Required VITAL SIGNS - Vital signs and nursing notes were reviewed. Stable and afebrile. GENERAL - 42-year-old female appearing her stated age who is in no acute distress but appears to be in pain and is holding the left side of the face with her left hand. Communicates well with provider and answers questions appropriately but is slow to talk or open the mouth secondary to pain on the left side of the face. SKIN - Without rashes. No meningeal or petechial rash. Mild edema noted to the left side of the face with erythema as well. HEAD - NC/AT. EYES - PERRL with EOMI bilaterally. Sclera anicteric. EARS - No deformities of external structures noted on gross examination bilaterally. External auditory canals without discharge or otorrhea. Tympanic membranes pearly vargas without retraction or bulging. No fluid or purulent material visualized behind the TM. Handle of malleus, umbo, cone of light, pars tensa/flaccid all easily visualized. NOSE - Midline and without cyanosis. No epistaxis or purulent drainage noted. Septum midline without deviation or septal hematoma noted. MOUTH/OROPHARYNX - Without perioral cyanosis. Buccal mucosa pink and moist and without leukoplakia. Tongue midline with equal elevation of palate bilaterally. No tonsillar hypertrophy, erythema, or exudates noted. Fair dentition noted. Left second molar, tooth #18 is in poor repair with surrounding erythema. There is no purulence. No drooling, stridor, trismus, wheezing or tripoding. Normal phonation. NECK - Neck with FROM. Supple to palpation. Left greater than right anterior cervical lymphadenopathy noted. No nuchal rigidity. No evidence of Nick's angina. LUNGS - CTA CARDIAC - RRR NEUROLOGIC - Cranial nerves II through XII grossly intact. PSYCH -alert, oriented and pleasant on exam Course Administered Medications Ketorolac Tromethamine (Ketorolac Tromethamine 15 Mg/Ml Vial) 15 mg IV Q6H PRN PRN Reason: Mild-Mod Pain (Scale 1-6) Stop: 08/19/23 18:07 Last Admin: 08/14/23 18:45 Dose: 15 mg Documented By: HS Discontinued Medications Ceftriaxone Sodium (Rocephin) 2,000 mg in 50 mls @ 100 mls/hr IV Q24H [facility] Stop: 08/14/23 16:44 Last Infusion: 08/14/23 17:02 Dose: Infused Documented By: Admin: 08/14/23 16:32 Dose: 100 mls/hr Documented By: HS Metronidazole (Flagyl) 500 mg in 100 mls @ 100 mls/hr IV NOW STA; Protocol Stop: 08/14/23 17:04 Last Infusion: 08/14/23 18:06 Dose: Infused Documented By: Admin: 08/14/23 17:06 Dose: 100 mls/hr Documented By: ENID Ioversol (Optiray 320 100ml) 92 ml IV ONCE ONE Stop: 08/14/23 16:21 Last Admin: 08/14/23 16:20 Dose: 92 ml Documented By: BRADK Morphine Sulfate (Morphine Sulfate 4 Mg/Ml 1 Ml Carp\\Vial) 4 mg IV NOW STA Stop: 08/14/23 15:50 Last Admin: 08/14/23 15:57 Dose: 4 mg Documented By: HS Ondansetron HCl (Ondansetron Inj 2 Mg/Ml 2 Ml Vial) 4 mg IV NOW STA Stop: 08/14/23 15:50 Last Admin: 08/14/23 15:57 Dose: 4 mg Documented By: ENID Medical Decision Making Laboratory Data 08/14/23 15:25 08/14/23 15:25 Lab Results 08/14/23 08/14/23 Range/Units 15:25 15:58 WBC 11.98 H (4.8-10.8) K/ul RBC 4.11 L (4.20-5.40) M/uL Hgb 13.5 (12.0-16.0) g/dl Hct 39.5 (37.0-47.0) % MCV 96.1 (80.0-100.0) fL MCH 32.8 (25.0-34.0) pg MCHC 34.2 (32.0-36.0) g/dL RDW Std Deviation 43.1 (36.4-46.3) fL RDW Coeff of Jacek 12.2 (11.5-14.5) % Plt Count 381 (130-400) K/uL MPV 10.3 (9.4-12.4) fL Immature Gran % (Auto) 0.2 % Neut % (Auto) 59.5 % Lymph % (Auto) 28.9 % [place] % (Auto) 8.9 % Eos % (Auto) 1.6 % Baso % (Auto) 0.9 % Neut # (Auto) 7.13 H (1.40-6.50) K/uL Lymph # (Auto) 3.46 H (1.20-3.40) K/uL [place] # (Auto) 1.07 H (0.11-0.59) K/uL Eos # (Auto) 0.19 (0.00-0.50) K/uL Baso # (Auto) 0.11 (0.00-0.20) K/uL Immature Gran # (Auto) 0.02 (0.01-0.20) K/uL Sodium 138 (136-145) mmol/L Potassium 3.9 (3.5-5.1) mmol/L Chloride 107 (98-107) mmol/L Carbon Dioxide 24 (21-32) mmol/L Anion Gap 7 (3-11) BUN 9 (6-23) mg/dl Creatinine 0.62 (0.6-1.2) mg/dl Est Cr Clr Drug Dosing 133.4 ml/min Est GFR ( Amer) 129.8 ml/min Est GFR (Non-Af Amer) 112.0 ml/min BUN/Creatinine Ratio 14.5 (10-20) Glucose 97 (70-99(Fasting)) mg/dl Lactate 0.8 (0.4-2.0) mmol/L Calcium 9.5 (8.6-10.3) mg/dl Total Bilirubin 0.6 (0.2-1.0) mg/dl AST 17 (13-39) U/L ALT 15 (7-52) U/L Alkaline Phosphatase 78 (34-104) U/L Total Protein 7.6 (6.0-8.3) gm/dl Albumin 4.4 (3.4-5.0) gm/dl Globulin 3.2 (2.5-4.0) gm/dl Albumin/Globulin Ratio 1.4 (0.9-2) Procalcitonin < 0.02 (0-0.5) ng/ml HCG, Qual Negative (Negative) Imaging Data Radiologist's Impression: Soft Tissue Neck CT 08/14/23 15:49 CT OF THE NECK WITH IV CONTRAST CLINICAL HISTORY: L sided facial pain, edema, dental pain, fever COMPARISON STUDY: No previous studies for comparison. TECHNIQUE: Following IV administration of 92 mL of Optiray, helical axial images of the neck were obtained. Sagittal and coronal reconstructions were viewed. Automated exposure control was utilized for the study. A dose lowering technique was utilized adhering to the principles of ALARA. FINDINGS: Visualized portions of the intracranial contents are unremarkable Global. Mastoid air cells are clear. Visualized portions of the sinuses are clear. No orbital abnormality is identified. The parotid and submandibular glands are unremarkable. There are several mildly enlarged left cervical lymph nodes. Index left level 1 node on image 204 of 397 measures 1.6 x 1 cm. A left level 2 node on image 187 measures 1.7 x 1.2 cm. Dental caries and periapical lucency/abscess of the left second mandibular molar (ADA #18) are noted. There is no adjacent soft tissue abscess. There is mild stranding adjacent to the left hemimandible. No rim-enhancing fluid collection within the neck is present. There is no prevertebral edema. The epiglottis is normal. Thyroid is unremarkable by CT. Lung apices are clear. Major vasculature of the neck is patent. IMPRESSION: 1. Dental caries and periapical lucency/abscess of the left second mandibular molar. No adjacent soft tissue abscess. Associated stranding adjacent to the left hemimandible consistent with cellulitis. 2. Mildly enlarged left-sided cervical lymph nodes which are likely reactive. ACT 112: Negative or not required by law. Electronically signed by: Price Polanco M.D. 08/14/2023 4:30 PM [facility] Narrative Patient was seen and evaluated as above in room C10. Review was performed of triage nursing notes and vital signs. I did review pertinent previous visits and patient history. After obtaining a thorough history and physical examination the above work up was performed. Patient presents to us today for assessment of left-sided facial pain. Pain appears to be originating from tooth #18 on the left posterior inferior molar region. 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 She has been on oral antibiotics now for a few days with worsening symptoms. Options of care were discussed with the patient. We will proceed at this time with CT imaging of the face/neck and laboratory studies. Labs reveal leukocytosis 11.98. No concerning anemia. No evidence of kidney or liver failure. Procalcitonin within normal range. hCG negative. Lactate also normal. Blood culture pending. CT scan soft tissue neck with IV contrast as above. Per radiologist there are dental caries and periapical lucency/abscess of the left second mandibular molar. No adjacent soft tissue abscess. Associated stranding adjacent to the left hemimandible consistent with cellulitis which I agree with clinically. There is also comment of mildly enlarged left-sided cervical lymph nodes which are likely reactive and/or clinically identified on exam as well. 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 For thorough organism coverage in the setting of asplenic state we will proceed with IV ceftriaxone and oral metronidazole. Patient denies any recent alcohol use. Case discussed with the hospitalist service. I also reviewed this with Dr. Yates HEATHER and he will see the patient in the hospital during her hospitalization. Please refer to further documentation regarding her stay. GCS: 15 In the evaluation and treatment of this patient, the following differential diagnoses were considered: Periapical Abscess, Osteonecrosis of the Jaw, Dental Fracture, Dental Caries, Nick's Angina, Vincent's Angina, Facial Cellulitis, among others Impression & Plan Cellulitis of face, Dental infection Discharge Plan Visit Data Chief Complaint: Dental/Oral Stated Complaint: DENTAL INFECTION, PAIN ED Provider: Brittany Funez ED Midlevel Provider: Jason Negrete Discharge Problem: Cellulitis of face, Dental infection Patient Disposition: Admitted As Inpatient Condition: Good Forms Stand Alone Forms: [facility] Prescriptions Prescriptions: No Action Spiriva Respimat 1.25 mcg/actuation mist 2 puff inhalation QAM Rx Instructions: PER PT "BEEN OUT OF THIS MED, NEED TO REFILL". albuterol sulfate 90 mcg/actuation HFA aerosol inhaler 90 mcg INHALATION DIRECTED PRN (Reason: Shortness Of Breath Or Wheezing) Medical [facility] Card 1 dose inhalation UD PRN (Reason: anxiety/ptsd) Patient Comments: vape or gummy. Rx Instructions: VAPS, SMOKES, GUMMIES penicillin V potassium 500 mg tablet 500 mg PO BID Rx Instructions: STARTED 08/12/23 FOR 7 DAYS Referrals Referrals: Beata Lopez PA-C [Primary Care Provider] -
[2023-08-14] MEDS ORDERED: AMPICILLIN/SULBACTAM SOD 3,000 MG in SODIUM CHLOR 0.9% MINI-B 100 ML IV STA (15:49)
[2023-08-14] MEDS: ONDANSETRON INJ 2 MG/ML 2 ML VIAL IV STA (15:57)
[2023-08-14] MEDS: MoRPHine SULFATE 4 MG/ML 1 ML CARP\\VIAL IV STA (15:57)
[2023-08-14 16:01] LABS: Pregnancy Test, Serum Negative (Negative)
[2023-08-14 16:11] LABS: Albumin Globulin Ratio 1.4 (0.9-2); Albumin Level 4.4 gm/dl (3.4-5.0); BUN Creatinine Ratio 14.5 (10-20); Bilirubin,Total 0.6 mg/dl (0.2-1.0); Calcium 9.5 mg/dl (8.6-10.3); Creatinine Clr Calc Pharmacy 133.4 ml/min; Est GFR (African American) 129.8 ml/min; Globulin 3.2 gm/dl (2.5-4.0); Potassium 3.9 mmol/L (3.5-5.1); Total Protein 7.6 gm/dl (6.0-8.3)
[2023-08-14 16:12] LABS: Basophils # (auto) 0.11 K/uL (0.00-0.20); Basophils % (auto) 0.9 %; Eosinophils # (auto) 0.19 K/uL (0.00-0.50); Eosinophils % (auto) 1.6 %; Hematocrit (blood only) 39.5 % (37.0-47.0); Hemoglobin 13.5 g/dl (12.0-16.0); Immature Granulocytes # (auto) 0.02 K/uL (0.01-0.20); Immature Granulocytes % (auto) 0.2 %; Lymphocytes # (auto) 3.46 K/uL (1.20-3.40); Lymphocytes % (auto) 28.9 %; Mean Corpuscular Hemoglobin 32.8 pg (25.0-34.0); Mean Corpuscular Hgb Conc 34.2 g/dL (32.0-36.0); Mean Corpuscular Volume 96.1 fL (80.0-100.0); Mean Platelet Volume 10.3 fL (9.4-12.4); Monocytes # (auto) 1.07 K/uL (0.11-0.59); Monocytes % (auto) 8.9 %; Neutrophils # (auto) 7.13 K/uL (1.40-6.50); Neutrophils % (auto) 59.5 %; Platelet Count 381 K/uL (130-400); RDW Coefficient of Variation 12.2 % (11.5-14.5); RDW Standard Deviation 43.1 fL (36.4-46.3); Red Blood Count 4.11 M/uL (4.20-5.40); White Blood Count 11.98 K/ul (4.8-10.8)
[2023-08-14] MEDS: OPTIRAY 320 100ml IV ONE (16:20)
[2023-08-14] MEDS: cefTRIAXone SODIUM 2,000 MG/50 ML BAG IV SCH (16:32)
--- NOTE | 2023-08-14 16:32 | CT Scan Report ---
CT OF THE NECK WITH IV CONTRAST CLINICAL HISTORY: L sided facial pain, edema, dental pain, fever COMPARISON STUDY: No previous studies for comparison. TECHNIQUE: Following IV administration of 92 mL of Optiray, helical axial images of the neck were ob tained. Sagittal and coronal reconstructions were viewed. Automated exposure control was utilized f or the study. A dose lowering technique was utilized adhering to the principles of ALARA. FINDINGS: Visualized portions of the intracranial contents are unremarkable Global. Mastoid air cell s are clear. Visualized portions of the sinuses are clear. No orbital abnormality is identified. The parotid and submandibular glands are unremarkable. There are several mildly enlarged left cervical ly mph nodes. Index left level 1 node on image 204 of 397 measures 1.6 x 1 cm. A left level 2 node on im age 187 measures 1.7 x 1.2 cm. Dental caries and periapical lucency/abscess of the left second mandib ular molar (ADA #18) are noted. There is no adjacent soft tissue abscess. There is mild stranding adj acent to the left hemimandible. No rim-enhancing fluid collection within the neck is present. There i s no prevertebral edema. The epiglottis is normal. Thyroid is unremarkable by CT. Lung apices are chacha ar. Major vasculature of the neck is patent. IMPRESSION: 1. Dental caries and periapical lucency/abscess of the left second mandibular molar. No adjacent soft tissue abscess. Associated stranding adjacent to the left hemimandible consistent with cellulitis. 2. Mildly enlarged left-sided cervical lymph nodes which are likely reactive. ACT 112: Negative or not required by law. Electronically signed by: Price Polanco M.D. 08/14/2023 4:30 PM
[2023-08-14] MEDS: metroNIDAZOLE 500 MG/100 ML BAG IV STA (17:06)
--- NOTE | 2023-08-14 17:26 | History & Physical Report ---
Date of Service August 14, 2023 Assessment & Plan (1) Dental abscess: (2) Pain, dental: Plan: This is a 42yo F with a PMH of COPD, GERD s/p Rcahele fundoplication, anxiety and other medical problems listed below who presents with dental pain x 3 days found to have dental carries with periapical abscess and hemimandibular cellulitis. Afebrile here, WBC 11.98K, procal negative Soft tissue neck CT with dental caries and periapical lucency/abscess of the left second mandibular molar. No adjacent soft tissue abscess. Associated stranding adjacent to the left hemimandible consistent with cellulitis. Mildly enlarged left-sided cervical lymph nodes which are likely reactive Given rocephin and flagyl in ED Will continue abx coverage with IV Unasyn Clear liquids, NPO at night in case of surgical intervention ED provider discussed with Dr. Yates who will evaluate CT and consult Pain control with PRN Toradol, tylenol and PRN oxycodone for severe breathrough pain (3) COPD (chronic obstructive pulmonary disease): Plan: Stable, at baseline. Continue Spiriva, PRN albuterol (4) Anxiety: Plan: Uses medical marijuana at home, not on any medications (5) GERD (gastroesophageal reflux disease): Plan: H/o Rachele fundiplication. Not on PPI DVT Ppx: SCDs Code status: FULL PCP: SO Lopez Dispo: admitted to med/surg Patient seen in collaboration with Dr. Dior. Please see addendum. I spent a total of 75 minutes coordinating, documenting, and providing care for this patient excluding time spent in the performance of separately billed services. History of Present Illness Chief Complaint: dental pain Primary Care Provider: Beata Lopez PA-C This is a 42yo F with a PMH of COPD, GERD s/p Rachele fundoplication, anxiety and other medical problems listed below who presents with dental pain x 3 days. Pain is on left side near jaw but pain has expanded throughout left side up to bahai and down under her chin. Went to Acute Care on Tuesday and was given penicillin PO 500mg BID. Over the weekend, throbbing pain became constant and more severe, prompting presentation to ED. Fever for past 2 days, Tmax of 102 F. Unable to chew or tolerate PO foods. Only able to drink 1/2 can of tomato soup today. Hurts to swallow. Difficult to sleep. Does not currently have a dentist. No CP, SOB, N/V, abdominal pain, dysuria, diarrhea or constipation. Allergies Allergy/AdvReac Type Severity Reaction Status Date / Time azithromycin AdvReac Intermediate Gastrointestinal Verified 08/14/23 16:52 Upset Home Medications Medication Instructions Recorded Confirmed Type albuterol sulfate 90 mcg/actuation 90 mcg inhalation DIRECTED PRN 09/26/22 08/14/23 History aerosol inhaler Shortness Of Breath Or Wheezing tiotropium bromide 1.25 2 puff inhalation QAM 03/16/23 08/14/23 History mcg/actuation mist for inhalation (Spiriva Respimat) Medical [place] Card 1 dose inhalation UD PRN 04/08/23 08/14/23 History anxiety/ptsd penicillin V potassium 500 mg 500 mg PO BID 08/14/23 08/14/23 History tablet Past Med/Surg History Problem List (Updated 08/14/23 @ 19:42 by Jason Negrete PA-C) Dental infection (Acute) Cellulitis of face (Acute) Pain, dental Dental abscess Medical History PTSD (post-traumatic stress disorder) Anxiety GERD (gastroesophageal reflux disease) Liver spot found 1-2 yr ago/to monitor with u/s...currently past due. Per abdomen/pelvis CT 10/03/22= "Liver unremarkable- no focal lesions seen." High cholesterol COPD (chronic obstructive pulmonary disease) Surgical History Hx of splenectomy History of colonoscopy pt is unsure History of endoscopy History of tonsillectomy H/O umbilical hernia repair (09/26/22) p Laparoscopic Appendectomy(Not Applicable) - Chay Davis, DO s Umbilical Hernia Repair(Not Applicable) - Chay Davis, DO History of laparoscopic appendectomy (09/26/22) p Laparoscopic Appendectomy(Not Applicable) - Chay Davis, DO s Umbilical Hernia Repair(Not Applicable) - Chay Davis, DO History of Rachele fundoplication 2007 / spleen "nicked" - splenectomy. Family History Other Diabetes Heart disease Hypertension Social History Smoking Status: Former smoker Tobacco Type: Cigarettes Do You Dip or Chew Tobacco: No; Hx Alcohol Use: No Hx Substance Use: No Preferred Language: Italian Communication Ability: Effective Visual Impairment: No Limitations Operations Consultant Required: No Beliefs That Will Affect Care: None Current Living Situation: Parent and Family Current Living Situation Comment: mom and daughter Feels Safe at Home: Yes Assistive Devices: Glasses Review of Systems Review of Systems: At least ten systems reviewed and negative except as noted in the HPI. Physical Exam Physical Exam: Please see Dr. Dior's addendum for physical exam. Results & Data Results & Data Vital Signs (Past 12 Hours) Vital Signs Temp Pulse Resp BP Pulse Ox O2 Del Method 08/14/23 15:09 36.5 C 65 16 163/107 H 98 Room Air Laboratory Results Short CBC 08/14/23 Range/Units 15:25 WBC 11.98 H (4.8-10.8) K/ul Hgb 13.5 (12.0-16.0) g/dl Hct 39.5 (37.0-47.0) % Plt Count 381 (130-400) K/uL BMP 08/14/23 15:25 Sodium 138 Potassium 3.9 Chloride 107 Carbon Dioxide 24 BUN 9 Creatinine 0.62 Glucose 97 Calcium 9.5 Liver Function 08/14/23 Range/Units 15:25 Total Bilirubin 0.6 (0.2-1.0) mg/dl AST 17 (13-39) U/L ALT 15 (7-52) U/L Alkaline Phosphatase 78 (34-104) U/L Albumin 4.4 (3.4-5.0) gm/dl Diagnostic Findings Soft Tissue Neck CT 08/14/23 15:49 CT OF THE NECK WITH IV CONTRAST CLINICAL HISTORY: L sided facial pain, edema, dental pain, fever COMPARISON STUDY: No previous studies for comparison. TECHNIQUE: Following IV administration of 92 mL of Optiray, helical axial images of the neck were obtained. Sagittal and coronal reconstructions were viewed. Automated exposure control was utilized for the study. A dose lowering technique was utilized adhering to the principles of ALARA. FINDINGS: Visualized portions of the intracranial contents are unremarkable Global. Mastoid air cells are clear. Visualized portions of the sinuses are clear. No orbital abnormality is identified. The parotid and submandibular glands are unremarkable. There are several mildly enlarged left cervical lymph nodes. Index left level 1 node on image 204 of 397 measures 1.6 x 1 cm. A left level 2 node on image 187 measures 1.7 x 1.2 cm. Dental caries and periapical lucency/abscess of the left second mandibular molar (ADA #18) are noted. There is no adjacent soft tissue abscess. There is mild stranding adjacent to the left hemimandible. No rim-enhancing fluid collection within the neck is present. There is no prevertebral edema. The epiglottis is normal. Thyroid is unremarkable by CT. Lung apices are clear. Major vasculature of the neck is patent. IMPRESSION: 1. Dental caries and periapical lucency/abscess of the left second mandibular molar. No adjacent soft tissue abscess. Associated stranding adjacent to the left hemimandible consistent with cellulitis. 2. Mildly enlarged left-sided cervical lymph nodes which are likely reactive. ACT 112: Negative or not required by law. Electronically signed by: Price Polanco M.D. 08/14/2023 4:30 PM Code Status & VTE Plan VTE Prophylaxis Plan VTE Prophylaxis will be ordered: Yes Supervising Physician Co-Signing Physician Notes Patient was seen and examined with Love Love PA-C at bedside. Chart reviewed. Case discussed with Love RIZZO and agree with the documentation above. In summary, this is a 42 year old female who presented to the ED for worsening left facial pain with fever which started on Tuesday. She was evaluated in Urgent Care on Tuesday and started on Pcn V 500 bid but continued to have fever and pain, not relieved with ibuprofen for which she came to ED. She does not have a dentist. Vitals and labs stable. CT soft tissue neck shows Dental caries and periapical lucency/abscess of the left second mandibular molar and associated stranding adjacent to the left hemimandible consistent with cellulitis along with reactive left cervical lymph nodes but no adjacent soft tissue abscess. Communicated with Dr Yates who will evaluate the patient tomorrow for surgical evaluation. Will start on iv unasyn, iv toradol prn for pain along with oxy prn if uncontrolled, tylenol prn for fever, clear liquid diet, npo after midnight. Rest as per the note above. On exam- General: Lying comfortably in bed, not in acute distress, on room air HEENT: EOMI, TESSA, MMM, dental caries Chest: Clear breath sounds bilaterally, no wheezes or crackles CVS: Regular rate and rhythm, normal heart sounds, no murmur Abdomen: Soft, non tender, not distended, normal bowel sounds Neuro: Awake, alert, oriented, conversing well, non focal Extremities: No cyanosis, clubbing or edema Psych: Calm, cooperative
--- NOTE | 2023-08-14 17:30 | Oral/Maxillofacial Consult ---
Date of Consultation August 14, 2023 Assessment & Plan (1) Dental infection: (2) Cellulitis of face: (3) Pain, dental: (4) Dental abscess: (5) Hx of splenectomy: (6) Swelling of submandibular region: History of Present Illness Reason for Consultation: facia infection/pain History of Present Illness Oral Maxillofacial Surgery Exam Present Complaint: Secondary to increasing pain/swelling/drainage from my infected teeth lower left # 18 . Symptoms have been ongoing for a while. This is a 42yo F with a PMH of COPD, GERD s/p Rachele fundoplication, anxiety and other medical problems listed below who presents with dental pain x 3 days found to have dental carries with periapical abscess and hemimandibular cellulitis. Given Rocephin and Flagyl in ED Will continue abx coverage with IV Unasyn Clear liquids, NPO at night in case of surgical intervention ED provider discussed with Dr. Yates who will evaluate CT and consult Pain control with PRN Toradol, Tylenol and PRN oxycodone for severe breathrough pain Oral Exam: Finding--P-cor associated with the lower left second molar # 18, marya swollen and tender gingival tissue with deep pocket formation. # 18 is fractured and removal is clinical indicated. Imaging: Soft tissue neck CT with dental caries and periapical lucency/abscess of the left second mandibular molar. No adjacent soft tissue abscess. Associated stranding adjacent to the left hemimandible consistent with cellulitis. Mildly enlarged left-sided cervical lymph nodes which are likely reactive The CT was reviewed, there were no abnormal findings other then the abscessed # 18 with radiolucent breakout of the cortical plate The TMJ are well positioned and no evidence of bony pathology. The sinus, supporting bone all WNL Evaluated the nerve/sinus relationship to the roots of the teeth. The following tooth will require extraction #18 Soft tissue: Lower left floor of the mouth,subperiosteal space and masseter space swollen from the infection extension of # 18. The tongue, hard/soft palate, posterior pharyngeal area all with in normal limits, no pathology or abnormal findings noted. No lesions noted that require follow up or Bx. Oral Care: Overall oral care is good Occlusion: Class I TMJ exam: No pop, clicking, pain, good ROM, No history of TMJ injury or dysfunction Periodontal exam: Healthy gingival tissue without evidence of periodontal pathology. Except lower left side of the jaw Head/Neck exam: Neck is supple, FROM, Able to extend and flex neck w/o difficulty, no masses, no abnormalities, no airway issues. soft swelling of the submandibular and cervical area. Most swelling is associated with the left cheek and subperiosteal area lower left side Treatment Plan: To OR today for I&D and extraction # 18 Set up with general anesthesia in hospital due to complexity of the procedure I reviewed the treatment plan and consent with the patient Understanding was expressed. Time was given for questions regarding the surgery, risks and post op care. Discussed alternative to treatment--procedure as planned-none tooth fractured hopeless, I&D medically necessary The following tooth is grossly decayed and fractured and removal is indicated RANJITH# 18 Will need I&D of the subperiosteal and masseter space--pain on opening and acute swelling noted Risks discussed: Bleeding,Pain,swelling,infection, dry socket, delayed healing, nerve injury to face,lips,tongue,chin area which could be permanent (rare). TMJ, jaw stiffness, change in bite (rare), ear pain (referred). Sinus problems like fistula or infection. Need to leave a small root fragment in place to avoid injury to nerve or sinus. Relationship of wisdom teeth to nerve/sinus and risk of jaw fracture. Home care reviewed: tooth brushing, rinsing, follow up care with Dr Yates. diet=[id number] dental. Discussed activity level, driving/work while on Rx pain Meds. Surgery to be set up today, NPO. Allergies Allergy/AdvReac Type Severity Reaction Status Date / Time azithromycin AdvReac Intermediate Gastrointestinal Verified 08/14/23 16:52 Upset Home Medications Medication Instructions Recorded Confirmed Type albuterol sulfate 90 mcg/actuation 90 mcg inhalation DIRECTED PRN 09/26/22 08/14/23 History aerosol inhaler Shortness Of Breath Or Wheezing tiotropium bromide 1.25 2 puff inhalation QAM 03/16/23 08/14/23 History mcg/actuation mist for inhalation (Spiriva Respimat) Medical Natalia Card 1 dose inhalation UD PRN 04/08/23 08/14/23 History anxiety/ptsd penicillin V potassium 500 mg 500 mg PO BID 08/14/23 08/14/23 History tablet Patient History Medical History PTSD (post-traumatic stress disorder) Anxiety GERD (gastroesophageal reflux disease) Liver spot found 1-2 yr ago/to monitor with u/s...currently past due. Per abdomen/pelvis CT 10/03/22= "Liver unremarkable- no focal lesions seen." High cholesterol COPD (chronic obstructive pulmonary disease) Surgical History Hx of splenectomy History of colonoscopy pt is unsure History of endoscopy History of tonsillectomy H/O umbilical hernia repair (09/26/22) p Laparoscopic Appendectomy(Not Applicable) - Chay Davis, s Umbilical Hernia Repair(Not Applicable) - Chay Davis DO History of laparoscopic appendectomy (09/26/22) p Laparoscopic Appendectomy(Not Applicable) - Chay Davis, DO s Umbilical Hernia Repair(Not Applicable) - Chay Davis DO History of Rachele fundoplication 2006 / spleen "nicked" - splenectomy. Family History Other Diabetes Heart disease Hypertension Social History Smoking Status: Former smoker Tobacco Type: Cigarettes Do You Dip or Chew Tobacco: No; Hx Alcohol Use: Yes Alcohol type: wine Hx Substance Use: Yes Substance Use Type Other:: medical marijuana Preferred Language: [place] Zealander Communication Ability: Effective Visual Impairment: No Limitations Budget Accountant Required: No Beliefs That Will Affect Care: None Current Living Situation: Family Current Living Situation Comment: mom and daughter Other Information That Helps Us Care for You: No Feels Safe at Home: Yes Safety Concerns: Feels Safe At This Time Assistive Devices: Glasses Results & Data Vital Signs (Past 12 Hours) Vital Signs Temp Pulse Pulse Resp BP BP Pulse Ox 08/14/23 17:24 79 20 134/79 97 08/14/23 15:09 36.5 C 65 16 163/107 H 98 O2 Del Method 08/14/23 17:24 Room Air 08/14/23 15:09 Room Air PG Care Time/CCT Total # of Minutes Spent Total Time Spent with Patient: Total time spent is greater than 50% in coordination of care (as documented) at patient's floor/unit and/or counseling patient: Coding Level of Care Code 13884 IN/OBS CONSULT LVL 2,35M Diagnoses Dental infection K04.7 Cellulitis of face L03.211 Pain, dental K08.89 Dental abscess K04.7 Hx of splenectomy Z90.81 Swelling of submandibular region R22.0; R22.1 CPT Codes DRAINAGE OF MOUTH LESION - 13433 ([id number]) REM IMP TOOTH W MUCOPER FLP - [id number] ([id number])
[2023-08-14] MEDS ORDERED: ALBUTEROL HFA 8 GM INHALER INH PRN (18:09)
[2023-08-14] MEDS: KETOROLAC TROMETHAMINE 15 MG/ML VIAL IV PRN (18:45)
[2023-08-14] MEDS ORDERED: ONDANSETRON INJ 2 MG/ML 2 ML VIAL IV PRN (21:41)
[2023-08-14] MEDS ORDERED: POLYETHYLENE (MIRALAX) 17 GM PACK PO PRN (21:41)
[2023-08-14] MEDS ORDERED: ACETAMINOPHEN 325 MG TAB PO PRN (21:41)
[2023-08-14] MEDS: oxyCODONE HCL IR 5 MG TAB (IMMEDIATE RELEASE) PO PRN (21:45)
[2023-08-14] MEDS: AMPICILLIN/SULBACTAM SOD 3,000 MG in SODIUM CHLOR 0.9% MINI-B 100 ML IV SCH (23:13)
[2023-08-15] MEDS: ACETAMINOPHEN 500 MG TAB PO PRN (05:19)
[2023-08-15 07:35] LABS: Hematocrit (blood only) 37.3 % (37.0-47.0); Hemoglobin 12.5 g/dl (12.0-16.0); Mean Corpuscular Hemoglobin 32.5 pg (25.0-34.0); Mean Corpuscular Hgb Conc 33.5 g/dL (32.0-36.0); Mean Corpuscular Volume 96.9 fL (80.0-100.0); Mean Platelet Volume 9.8 fL (9.4-12.4); Platelet Count 358 K/uL (130-400); RDW Coefficient of Variation 12.3 % (11.5-14.5); RDW Standard Deviation 43.8 fL (36.4-46.3); Red Blood Count 3.85 M/uL (4.20-5.40); White Blood Count 8.53 K/ul (4.8-10.8)
--- NOTE | 2023-08-15 08:49 | Hospitalist Progress Note ---
Date of Service August 15, 2023 Assessment & Plan (1) Dental abscess: (2) Pain, dental: (3) COPD (chronic obstructive pulmonary disease): (4) Anxiety: (5) GERD (gastroesophageal reflux disease): Plan Per previous admitting provider with additional updates/addendum: Nancy Miles is a 42y/o F with PMHx of COPD, GERD s/p Rachele fundoplication, anxiety and other medical problems listed below who presented to the ED with dental pain x 3 days and was found to have dental carries with a periapical abscess and hemimandibular cellulitis. Periapical Dental Abscess Hemimandibular Cellulitis Dental Pain/Discomfort Still afebrile, WBC 11.98K --> 8.53K [WNL], procalcitonin negative. Soft tissue neck CT with dental caries and periapical lucency/abscess of the left second mandibular molar. No adjacent soft tissue abscess. Associated stranding adjacent to the left hemimandible consistent with cellulitis. Mildly enlarged left-sided cervical lymph nodes which are likely reactive. Was given IV Rocephin and Flagyl in ED. Will continue ABX coverage with IV Unasyn. Pt was NPO at midnight pending surgical evaluation today. Started pt of IVF w/ NSS @ 70cc/hr, will stop after 2 bags. Pt reports adequate pain control on current PRN regimen - will continue. Dr. Yates saw and evaluated pt this afternoon; she will be undergoing I&D and extraction of tooth #18 today. COPD: Chronic, at baseline; currently 97% SpO2 on RA, denies any SOB or wheezing --> Continue Spiriva and PRN albuterol. Anxiety: Pt uses medical marijuana at home, not currently on any prescription medications. GERD: H/O Rachele fundoplication; not currently on PPI regimen/therapy. DVT Prophylaxis: SCDs - For now Code Status: FULL CODE PCP: Beata Lopez PA-C Dispo: Admitted in Med/Surg, will be undergoing I&D and extraction of tooth #[address] Yates today. Patient seen in collaboration with Dr. Canela. Please see addendum. I spent a total of 45 minutes coordinating, documenting, and providing care for this patient excluding time spent in the performance of separately billed services. This included personally reviewing all current laboratories and imaging studies, medical reconciliation, outpatient chart review and discussion with specialists. This chart was completed in part utilizing Speech Voice Recognition Software. Grammatical errors, random word insertions, pronoun errors, and incomplete sentences are an occasional consequence of this system due to software limitations, ambient noise, and hardware issues. Any formal questions or concerns about the content, text, or information contained within the body of this dictation should be directly addressed to the provider for clarification. Admission and Anticipated Discharge Date Admission Date: August 14, 2023 Supervising Physician Co-Signing Physician Notes Patient was seen and examined at bedside as a follow-up of periapical dental abscess #18, hemimandibular cellulitis, dental pain/discomfort. OMFS on board. Plan to undergo I&D and extraction of tooth #18 today. Continue with Unasyn, add probiotic. Continue with IV fluid. On exam, patient on room air, left facial swelling noted, heart/lung/abdomen examination WNL. Rest of the examination as above. I have seen and examined the patient and have discussed the case with the provider above. I agree with the assessment and plan as stated. Subjective Patient seen and examined at bedside in room N378-1. Reporting good pain control, set to meet with Dr. Yates this morning. States the swelling in her left jaw region has gotten a little worse. Denies any difficulty breathing, SOB. Wants to apply an ice pack to the region. Dr. Yates to see and evaluate her today, patient made aware and agreeable with plan. Review of Systems Review of Systems: At least ten systems reviewed and negative, except as noted in the HPI. Physical Exam Physical Exam: General: Vitals as above, NAD, sitting up in bed, pleasant, conversing appropriately. HEENT: PERRL, EOMI, conjunctivae normal, anicteric sclerae, mucous membranes moist. Swelling of L mandibular region, quite tender to palpation. Respiratory: Normal respiratory effort, lungs clear to auscultation, no wheeze, rales, rhonchi. No accessory muscle use. Cardiovascular: Regular rate, rhythm, no murmur, normal peripheral pulses, no BLE edema. Vessels: No JVD. Abdomen/GI: Normal bowel sounds, soft, nontender, no hepatosplenomegaly. Extremities/Musculoskeletal: No cyanosis or clubbing, extremities motor strength intact, moves all extremities. Neurologic: Accommodation nl, no face palsy, no dysarthria, CN's II-XI not formally tested but appear intact bilaterally. Psychiatric: A+Ox3, euthymic affect. Skin: No rashes, warm/dry, no overlying erythema of L mandibular region. Results & Data Results & Data Vital Signs (Past 12 Hours) Vital Signs Temp Pulse Pulse Resp BP BP Pulse Ox 08/15/23 07:52 36.7 C 61 14 139/91 97 08/14/23 21:10 36.7 C 47 L 19 119/78 97 O2 Del Method 08/15/23 07:52 Room Air 08/14/23 21:10 Room Air Laboratory Results Short CBC 08/14/23 08/15/23 Range/Units 15:25 07:06 WBC 11.98 H 8.53 (4.8-10.8) K/ul Hgb 13.5 12.5 (12.0-16.0) g/dl Hct 39.5 37.3 (37.0-47.0) % Plt Count 381 358 (130-400) K/uL BMP 08/14/23 08/15/23 15:25 07:06 Sodium 138 141 Potassium 3.9 4.7 D Chloride 107 111 H Carbon Dioxide 24 27 BUN 9 10 Creatinine 0.62 0.64 Glucose 97 94 Calcium 9.5 9.0 Liver Function 08/14/23 Range/Units 15:25 Total Bilirubin 0.6 (0.2-1.0) mg/dl AST 17 (13-39) U/L ALT 15 (7-52) U/L Alkaline Phosphatase 78 (34-104) U/L Albumin 4.4 (3.4-5.0) gm/dl Diagnostic Findings Soft Tissue Neck CT 08/14/23 15:49 CT OF THE NECK WITH IV CONTRAST CLINICAL HISTORY: L sided facial pain, edema, dental pain, fever COMPARISON STUDY: No previous studies for comparison. TECHNIQUE: Following IV administration of 92 mL of Optiray, helical axial images of the neck were obtained. Sagittal and coronal reconstructions were viewed. Automated exposure control was utilized for the study. A dose lowering technique was utilized adhering to the principles of ALARA. FINDINGS: Visualized portions of the intracranial contents are unremarkable Global. Mastoid air cells are clear. Visualized portions of the sinuses are clear. No orbital abnormality is identified. The parotid and submandibular glands are unremarkable. There are several mildly enlarged left cervical lymph nodes. Index left level 1 node on image 204 of 397 measures 1.6 x 1 cm. A left level 2 node on image 187 measures 1.7 x 1.2 cm. Dental caries and periapical lucency/abscess of the left second mandibular molar (ADA #18) are noted. There is no adjacent soft tissue abscess. There is mild stranding adjacent to the left hemimandible. No rim-enhancing fluid collection within the neck is present. There is no prevertebral edema. The epiglottis is normal. Thyroid is unremarkable by CT. Lung apices are clear. Major vasculature of the neck is patent. IMPRESSION: 1. Dental caries and periapical lucency/abscess of the left second mandibular molar. No adjacent soft tissue abscess. Associated stranding adjacent to the left hemimandible consistent with cellulitis. 2. Mildly enlarged left-sided cervical lymph nodes which are likely reactive. ACT 112: Negative or not required by law. Electronically signed by: Price Polanco M.D. 08/14/2023 4:30 PM Medications Administered Acetaminophen (Acetaminophen 500 Mg Tab) 1,000 mg PO Q8H PRN PRN Reason: pain or fever Stop: 09/13/23 18:14 Last Admin: 08/15/23 05:19 Dose: 1,000 mg Documented By: DEE DEE Ampicillin Sodium/Sulbactam Sodium 3,000 mg/ Sodium Chloride 100 mls @ 100 mls/hr IV Q6H [facility] Stop: 08/21/23 22:59 Last Infusion: 08/15/23 12:19 Dose: Infused Documented By: Admin: 08/15/23 11:19 Dose: 100 mls/hr Documented By: Infusion: 08/15/23 06:30 Dose: Infused Documented By: DEE DEE Admin: 08/15/23 05:19 Dose: 100 mls/hr Documented By: DEE DEE Infusion: 08/15/23 00:43 Dose: Infused Documented By: DEE DEE Admin: 08/14/23 23:13 Dose: 100 mls/hr Documented By: DEE DEE Sodium Chloride (Nss) 1,000 mls @ 70 mls/hr IV .[id number] [facility] Stop: 08/16/23 13:19 Last Infusion: 08/15/23 12:19 Dose: 70 mls/hr Documented By: Infusion: 08/15/23 11:19 Dose: 0 mls/hr Documented By: Admin: 08/15/23 08:57 Dose: 70 mls/hr Documented By: RADHA Ketorolac Tromethamine (Ketorolac Tromethamine 15 Mg/Ml Vial) 15 mg IV Q6H PRN PRN Reason: Mild-Mod Pain (Scale 1-6) Stop: 08/19/23 18:07 Last Admin: 08/15/23 08:25 Dose: 15 mg Documented By: Admin: 08/15/23 00:46 Dose: 15 mg Documented By: DEE DEE Admin: 08/14/23 18:45 Dose: 15 mg Documented By: ENID Oxycodone HCl (Oxycodone Hcl Ir 5 Mg Tab (Immediate Release)) 5 mg PO Q6H PRN PRN Reason: Severe Pain (Scale 7, 8, 9,10) Stop: 08/28/23 18:07 Last Admin: 08/15/23 11:16 Dose: 5 mg Documented By: Admin: 08/14/23 21:45 Dose: 5 mg Documented By: DEE DEE Umeclidinium [place] (Umeclidinium [place] 62.5mcg/Blister 7 Puffs/Inhaler) 1 puffs INH QAM [facility] Stop: 09/14/23 08:59 Last Admin: 08/15/23 08:53 Dose: 1 puffs Documented By: RADHA Discontinued Medications Ceftriaxone Sodium (Rocephin) 2,000 mg in 50 mls @ 100 mls/hr IV Q24H [facility] Stop: 08/14/23 16:44 Last Infusion: 08/14/23 17:02 Dose: Infused Documented By: Admin: 08/14/23 16:32 Dose: 100 mls/hr Documented By: ENID Metronidazole (Flagyl) 500 mg in 100 mls @ 100 mls/hr IV NOW STA; Protocol Stop: 08/14/23 17:04 Last Infusion: 08/14/23 18:06 Dose: Infused Documented By: Admin: 08/14/23 17:06 Dose: 100 mls/hr Documented By: ENID Ioversol (Optiray 320 100ml) 92 ml IV ONCE ONE Stop: 08/14/23 16:21 Last Admin: 08/14/23 16:20 Dose: 92 ml Documented By: THOMAS Morphine Sulfate (Morphine Sulfate 4 Mg/Ml 1 Ml Carp\Vial) 4 mg IV NOW STA Stop: 08/14/23 15:50 Last Admin: 08/14/23 15:57 Dose: 4 mg Documented By: HS Ondansetron HCl (Ondansetron Inj 2 Mg/Ml 2 Ml Vial) 4 mg IV NOW STA Stop: 08/14/23 15:50 Last Admin: 08/14/23 15:57 Dose: 4 mg Documented By: HS (3) COPD (chronic obstructive pulmonary disease) COPD type: unspecified COPD Qualified Code(s): J44.9 - Chronic obstructive pulmonary disease, unspecified (5) GERD (gastroesophageal reflux disease) Esophagitis presence: esophagitis presence not specified Qualified Code(s): K21.9 - Gastro-esophageal reflux disease without esophagitis
[2023-08-15] MEDS: UMECLIDINIUM BROMIDE 62.5MCG/BLISTER 7 PUFFS/INHALER INH SCH (08:53)
[2023-08-15] MEDS: SODIUM CHLORIDE 0.9% 1,000 ML IV SCH (08:57)
[2023-08-15 10:21] LABS: Potassium 4.7 mmol/L (3.5-5.1)
[2023-08-15 10:23] LABS: BUN Creatinine Ratio 15.6 (10-20); Creatinine Clr Calc Pharmacy 129.4 ml/min; Est GFR (African American) 128.5 ml/min; Est GFR (Non-African American) 110.8 ml/min
--- NOTE | 2023-08-15 13:26 | History & Physical Bridge Note ---
Date of Service August 15, 2023 History & Physical Bridge Note I have examined the patient, reviewed the History & Physical and in the interval since the performance of the History & Physical I have noted the following changes of clinical significance: no changes noted. OK for the planned surgery
[2023-08-15] MEDS: LACTATED RINGER'S 1,000 ML IV SCH (14:40)
[2023-08-15] MEDS ORDERED: DEXAMETHASONE SOD INJ 4 MG/ML VIAL ONE (14:51)
[2023-08-15] MEDS ORDERED: LIDOCAINE 2% 2 ML VIAL/AMP(20MG/ML) INFIL ONE ×2 (14:51→14:52)
[2023-08-15] MEDS ORDERED: fentaNYL citrate PF 100 MCG/2 ML VIAL ONE (14:51)
[2023-08-15] MEDS ORDERED: PROPOFOL IV EMULSION 10 MG/ML 20 ML VIAL IV ONE (14:51)
[2023-08-15] MEDS ORDERED: MIDAZOLAM HCL 1 MG/ML 2ML VIAL ONE (14:51)
[2023-08-15] MEDS ORDERED: ONDANSETRON INJ 2 MG/ML 2 ML VIAL ONE (14:51)
[2023-08-15] MEDS ORDERED: ONDANSETRON INJ 2 MG/ML 2 ML VIAL IV PRN ×2 (14:56→16:07)
[2023-08-15] MEDS ORDERED: ePHEDrine sulfate 50 MG/ML AMP IV PRN ×2 (14:56→16:07)
[2023-08-15] MEDS ORDERED: PROMETHAZINE HCL 6.25 MG in SODIUM CHLORIDE 0.9% 50 ML IV PRN (14:56)
[2023-08-15] MEDS ORDERED: ROCURONIUM BROMIDE 10 MG/ML 5 ML VIAL IV ONE (14:56)
[2023-08-15] MEDS ORDERED: fentaNYL citrate PF 100 MCG/2 ML VIAL IV PRN ×2 (14:56→16:07)
[2023-08-15] MEDS ORDERED: ATROPINE SULFATE 0.1 MG/ML 10ML SYR IV PRN ×2 (14:56→16:07)
[2023-08-15] MEDS: KETOROLAC TROMETHAMINE 15 MG/ML VIAL IV ONE (14:59)
[2023-08-15] MEDS: KETOROLAC 30 MG/ML VIAL ONE (14:59)
[2023-08-15] MEDS: CHLORHEXIDINE GLUCONATE 0.12% 480 ML MT ONE (15:55)
[2023-08-15] MEDS ORDERED: SUGAMMADEX SODIUM 200 MG/2 ML VIAL IV ONE (15:58)
[2023-08-15] MEDS: BUPIVACAINE/EPINEPHRINE 0.5% 1:200,000 1.8 ML CARP ONE (15:58)
--- NOTE | 2023-08-15 16:07 | Anesthesiology Consultation ---
Date of Service August 15, 2023 Assessment & Plan Chart Review Chart Review: Acceptable Risk for Surgery and Patient NOT seen in Pre Admission Testing Consults Requested none ASA ASA2 Proposed Anesthesia Anesthesia Type: General Risk / Benefits Reviewed With: PT / POA / Parent / Guardian, Accepts Plan and Informed Consent Obtained History Surgery Operation Date: 08/15/23 09:30 Proposed Procedures p Incision, Drainage and Extraction #18 - Randal Barraza [place], DMD Height/Weight Height: 5 ft 7 in Weight: 84.78 kg Allergies Allergy/AdvReac Type Severity Reaction Status Date / Time azithromycin AdvReac Intermediate Gastrointestinal Verified 08/14/23 16:52 Upset Medications Home Medications Medication Instructions Recorded Confirmed Last Taken albuterol sulfate 90 mcg/actuation 90 mcg inhalation DIRECTED PRN 09/26/22 08/14/23 Unknown aerosol inhaler Shortness Of Breath Or Wheezing tiotropium bromide 1.25 2 puff inhalation QAM 03/16/23 08/14/23 04/20/23 07:00 mcg/actuation mist for inhalation (Spiriva Respimat) Medical [facility] Card 1 dose inhalation UD PRN 04/08/23 08/14/23 04/20/23 22:00 anxiety/ptsd penicillin V potassium 500 mg 500 mg PO BID 08/14/23 08/14/23 08/14/23 08:00 tablet Active Medications Generic Name Dose Route Start Last Admin Trade Name Freq PRN Reason Stop Dose Admin Acetaminophen 1,000 mg 08/14/23 18:08 08/15/23 05:19 Acetaminophen 500 Mg Tab PO 09/13/23 18:14 1,000 mg Q8H PRN Administration pain or fever Ampicillin Sodium/Sulbactam 100 mls @ 100 mls/hr 08/14/23 23:00 08/15/23 12:19 Sodium 3,000 mg/ Sodium IV 08/21/23 22:59 Infused Chloride Q6H [facility] Infusion Sodium Chloride 1,000 mls @ 70 mls/hr 08/15/23 08:45 08/15/23 12:19 Nss IV 08/16/23 13:19 70 mls/hr .[id number] HERB Infusion Lactated Ringer's 1,000 mls @ 15 mls/hr 08/15/23 14:45 08/15/23 15:36 Lr IV 09/14/23 14:44 Infused .Q24H HERB Infusion Ketorolac Tromethamine 15 mg 08/14/23 18:08 08/15/23 08:25 Ketorolac Tromethamine 15 Mg/Ml Vial IV 08/19/23 18:07 15 mg Q6H PRN Administration Mild-Mod Pain (Scale 1-6) Oxycodone HCl 5 mg 08/14/23 18:08 08/15/23 11:16 Oxycodone Hcl Ir 5 Mg Tab (Immediate Release) PO 08/28/23 18:07 5 mg Q6H PRN Administration Severe Pain (Scale 7, 8, 9,10) Umeclidinium [place] 1 puffs 08/15/23 09:00 08/15/23 08:53 Umeclidinium [place] 62.5mcg/Blister 7 Puffs/Inhaler INH 09/14/23 08:59 1 puffs QAM HERB Administration NPO Date Last Intake of Fluids: 08/14/23 Time Last Intake of Fluids: 23:59 Date Last Intake of Solids: 08/14/23 Time Last Intake of Solids: 23:59 Past Medical History Medical History PTSD (post-traumatic stress disorder) Anxiety GERD (gastroesophageal reflux disease) Liver spot found 1-2 yr ago/to monitor with u/s...currently past due. Per abdomen/pelvis CT 10/03/22= "Liver unremarkable- no focal lesions seen." High cholesterol COPD (chronic obstructive pulmonary disease) Exercise / Class Metabolic Activity II 4-5 Yardwork/Stairs/Walk up hill Past Family History Family History Other Diabetes Heart disease Hypertension Past Surgical History Surgical History Hx of splenectomy History of colonoscopy pt is unsure History of endoscopy History of tonsillectomy H/O umbilical hernia repair (09/26/22) p Laparoscopic Appendectomy(Not Applicable) - Chay Davis, DO s Umbilical Hernia Repair(Not Applicable) - Chay Davis DO History of laparoscopic appendectomy (09/26/22) p Laparoscopic Appendectomy(Not Applicable) - Chay Davis, DO s Umbilical Hernia Repair(Not Applicable) - Chay Davis DO History of Rachele fundoplication 2007 / spleen "nicked" - splenectomy. Past Anesthesia History No Hx of Anesthesia Complications and No Family Hx of Anesthesia Complications History of PONV No Hx of PONV and No Hx of Motion Sickness Social History Smoking Status: Former smoker Do You Dip or Chew Tobacco: No Hx Alcohol Use: Yes Alcohol type: wine alcohol intake frequency: a few times a month Hx Substance Use: Yes substance use type: marijuana Substance Use Type Other:: medical marijuana Physical Exam Vital Signs Last Vital Signs Temp 36.8 C 08/15/23 14:32 Pulse 56 L 08/15/23 14:32 Resp 20 08/15/23 14:32 BP 138/71 08/15/23 14:32 Pulse Ox 97 08/15/23 14:32 O2 Del Method Room Air 08/15/23 14:32 ENMT Mouth: no dentition abnormality Thyromental Distance: > or= 3.5 Finger Breadths Mallampati Class: II Neck normal visual inspection Respiratory normal respiratory effort Auscultation: lungs clear to auscultation bilaterally Cardiovascular Rate/Rhythm: regular rate and regular rhythm Psychiatric Orientation: alert Testing Laboratory Results 08/15/23 07:06 08/15/23 07:06
--- NOTE | 2023-08-15 16:44 | Post Operative Brief Note ---
PG Immediate Post Op with CF Date of Surgery August 15, 2023 Pre & Post Diagnosis Operation Date: 08/15/23 09:30 Pre-Op Diagnosis: (1) Dental infection: (2) Cellulitis of face: (3) Pain, dental: (4) Dental abscess: Post-Op Diagnosis: (1) Dental infection: (2) Cellulitis of face: (3) Pain, dental: (4) Dental abscess: I identified the patient and participated in the time-out.: Yes Procedure Operation Date: 08/15/23 09:30 Actual Procedures p Incision, Drainage and Extraction #18(Not Applicable) - Randal Yates, NOEL Surgeon Randal Yates, NOEL Coater Slate none Estimated Blood Loss 3 Findings Consistent with Post-Op Diagnosis abscessed # 18 with extension into masseter space Specimens Specimen Description: None Anesthesia Type General Complications none Disposition Accompanied Patient To Recovery: Yes
--- NOTE | 2023-08-15 16:50 | Anesthesiology Progress Note ---
Date of Service August 15, 2023 Anesthesia Post Procedure Vital Signs Vital Signs: Temp Pulse Pulse Resp BP BP Pulse Ox 08/15/23 16:35 97.0 F L 60 18 121/84 97 08/15/23 16:25 70 19 118/82 97 08/15/23 16:15 70 19 124/73 98 08/15/23 16:08 97.3 F L 88 21 119/83 97 08/15/23 14:32 98.2 F 56 L 20 138/71 97 08/15/23 07:52 98.1 F 61 14 139/91 97 08/14/23 21:10 98.1 F 47 L 19 119/78 97 08/14/23 19:59 98.2 F 57 L 16 126/79 97 08/14/23 17:24 79 20 134/79 97 O2 Del Method 08/15/23 16:35 Room Air 08/15/23 16:25 Room Air 08/15/23 16:15 Room Air 08/15/23 16:08 Room Air 08/15/23 14:32 Room Air 08/15/23 07:52 Room Air 08/14/23 21:10 Room Air 08/14/23 19:59 Room Air 08/14/23 17:24 Room Air Pain Intensity Face: Pain Intensity: 7 Transfer of Care Handoff Completed per policy Notes Mental Status: alert / awake / arousable and participated in evaluation Patient Amnestic to Procedure: Yes Nausea / Vomiting: adequately controlled Pain: adequately controlled Airway Patency, RR, SpO2: stable & adequate BP & HR: stable & adequate Hydration State: stable & adequate Anesthetic Complications: no major complications apparent and Pt Satisfied with anesthetic care
--- NOTE | 2023-08-16 07:10 | Hospitalist Progress Note ---
Date of Service August 16, 2023 Assessment & Plan (1) Dental abscess: (2) Pain, dental: (3) COPD (chronic obstructive pulmonary disease): (4) Anxiety: (5) GERD (gastroesophageal reflux disease): Plan Per previous progress note with additional daily updates/addendum: Nancy Miles is a 42y/o F with PMHx of COPD, GERD s/p Rachele fundoplication, anxiety and other medical problems listed below who presented to the ED with dental pain x 3 days and was found to have dental carries with a periapical abscess and hemimandibular cellulitis. Periapical Dental Abscess Hemimandibular Cellulitis Dental Pain/Discomfort Still afebrile, WBC 11.98K --> 8.53K yesterday [WNL], procalcitonin negative. Soft tissue neck CT with dental caries and periapical lucency/abscess of the left second mandibular molar. No adjacent soft tissue abscess. Associated stranding adjacent to the left hemimandible consistent with cellulitis. Mildly enlarged left-sided cervical lymph nodes which are likely reactive. Was given IV Rocephin and Flagyl in ED. Will continue ABX coverage with IV Unasyn, on day 3. Started pt of IVF w/ NSS @ 70cc/hr yesterday, will stop after 2 bags. Pt reports adequate pain control on current PRN regimen - will continue. Pt underwent I&D and extraction of tooth #[address] Yates yesterday [EBL: 3mL]. COPD: Chronic, at baseline; currently 97% SpO2 on RA, denies any SOB or wheezing --> Continue Spiriva and PRN albuterol. Anxiety: Pt uses medical marijuana at home, not currently on any prescription medications. GERD: H/O Rachele fundoplication; not currently on PPI regimen/therapy. DVT Prophylaxis: SCDs - For now Code Status: FULL CODE PCP: Beata Lopez PA-C Dispo: Admitted in Med/Surg, pt underwent I&D and extraction of tooth #[address] Yates yesterday. Patient seen in collaboration with Dr. Canela. Please see addendum. I spent a total of 45 minutes coordinating, documenting, and providing care for this patient excluding time spent in the performance of separately billed services. This included personally reviewing all current laboratories and imaging studies, medical reconciliation, outpatient chart review and discussion with specialists. This chart was completed in part utilizing Speech Voice Recognition Software. Grammatical errors, random word insertions, pronoun errors, and incomplete sentences are an occasional consequence of this system due to software limitations, ambient noise, and hardware issues. Any formal questions or concerns about the content, text, or information contained within the body of this dictation should be directly addressed to the provider for clarification. Admission and Anticipated Discharge Date Admission Date: August 14, 2023 Subjective Patient seen and examined at bedside in room N378-1. Review of Systems Review of Systems: At least ten systems reviewed and negative, except as noted in the HPI. Physical Exam Physical Exam: General: Vitals as above, NAD, sitting up in bed, pleasant, conversing appropriately. A+Ox3, euthymic affect. HEENT: PERRL, EOMI, conjunctivae normal, anicteric sclerae, mucous membranes moist. Swelling of L mandibular region, quite tender to palpation. Respiratory: Normal respiratory effort, lungs clear to auscultation, no wheeze, rales, rhonchi. No accessory muscle use. Cardiovascular: Regular rate, rhythm, no murmur, normal peripheral pulses, no BLE edema. Vessels: No JVD. Abdomen/GI: Normal bowel sounds, soft, nontender, no hepatosplenomegaly. Extremities/Musculoskeletal: No cyanosis or clubbing, extremities motor strength intact, moves all extremities. Neurologic: Accommodation nl, no face palsy, no dysarthria, CN's II-XI not formally tested but appear intact bilaterally. Skin: No rashes, warm/dry, no overlying erythema of L mandibular region. Results & Data Results & Data Vital Signs (Past 12 Hours) Vital Signs Temp Pulse Resp BP Pulse Ox O2 Del Method 08/16/23 04:00 36.6 C 54 L 16 119/70 98 Room Air 08/16/23 00:00 36.5 C 59 L 16 106/67 97 Room Air 08/15/23 21:23 37.0 C 61 14 136/78 97 Room Air Diagnostic Findings Soft Tissue Neck CT 08/14/23 15:49 CT OF THE NECK WITH IV CONTRAST CLINICAL HISTORY: L sided facial pain, edema, dental pain, fever COMPARISON STUDY: No previous studies for comparison. TECHNIQUE: Following IV administration of 92 mL of Optiray, helical axial images of the neck were obtained. Sagittal and coronal reconstructions were viewed. Automated exposure control was utilized for the study. A dose lowering technique was utilized adhering to the principles of ALARA. FINDINGS: Visualized portions of the intracranial contents are unremarkable Global. Mastoid air cells are clear. Visualized portions of the sinuses are clear. No orbital abnormality is identified. The parotid and submandibular glands are unremarkable. There are several mildly enlarged left cervical lymph nodes. Index left level 1 node on image 204 of 397 measures 1.6 x 1 cm. A left level 2 node on image 187 measures 1.7 x 1.2 cm. Dental caries and periapical lucency/abscess of the left second mandibular molar (ADA #18) are noted. There is no adjacent soft tissue abscess. There is mild stranding adjacent to the left hemimandible. No rim-enhancing fluid collection within the neck is present. There is no prevertebral edema. The epiglottis is normal. Thyroid is unremarkable by CT. Lung apices are clear. Major vasculature of the neck is patent. IMPRESSION: 1. Dental caries and periapical lucency/abscess of the left second mandibular molar. No adjacent soft tissue abscess. Associated stranding adjacent to the left hemimandible consistent with cellulitis. 2. Mildly enlarged left-sided cervical lymph nodes which are likely reactive. ACT 112: Negative or not required by law. Electronically signed by: Price Polanco M.D. 08/14/2023 4:30 PM Medications Administered Acetaminophen (Acetaminophen 500 Mg Tab) 1,000 mg PO Q8H PRN PRN Reason: pain or fever Stop: 09/13/23 18:14 Last Admin: 08/16/23 04:47 Dose: 1,000 mg Documented By: DEE DEE Admin: 08/15/23 05:19 Dose: 1,000 mg Documented By: DEE DEE Ampicillin Sodium/Sulbactam Sodium 3,000 mg/ Sodium Chloride 100 mls @ 100 mls/hr IV Q6H [facility] Stop: 08/21/23 22:59 Last Admin: 08/16/23 04:49 Dose: 100 mls/hr Documented By: DEE DEE Infusion: 08/16/23 00:52 Dose: Infused Documented By: DEE DEE Admin: 08/15/23 23:31 Dose: 100 mls/hr Documented By: DEE DEE Infusion: 08/15/23 17:51 Dose: Infused Documented By: Admin: 08/15/23 16:51 Dose: 100 mls/hr Documented By: Infusion: 08/15/23 12:19 Dose: Infused Documented By: Admin: 08/15/23 11:19 Dose: 100 mls/hr Documented By: Infusion: 08/15/23 06:30 Dose: Infused Documented By: DEE DEE Admin: 08/15/23 05:19 Dose: 100 mls/hr Documented By: DEE DEE Infusion: 08/15/23 00:43 Dose: Infused Documented By: DEE DEE Admin: 08/14/23 23:13 Dose: 100 mls/hr Documented By: DEE DEE Sodium Chloride (Nss) 1,000 mls @ 70 mls/hr IV .[id number] HERB Stop: 08/16/23 13:19 Last Admin: 08/16/23 04:49 Dose: 70 mls/hr Documented By: DEE DEE Infusion: 08/16/23 04:16 Dose: Infused Documented By: DEE DEE Infusion: 08/15/23 17:51 Dose: 70 mls/hr Documented By: Infusion: 08/15/23 13:50 Dose: 0 mls/hr Documented By: Infusion: 08/15/23 12:19 Dose: 70 mls/hr Documented By: Infusion: 08/15/23 11:19 Dose: 0 mls/hr Documented By: Admin: 08/15/23 08:57 Dose: 70 mls/hr Documented By: RADHA Ketorolac Tromethamine (Ketorolac Tromethamine 15 Mg/Ml Vial) 15 mg IV Q6H PRN PRN Reason: Mild-Mod Pain (Scale 1-6) Stop: 08/19/23 18:07 Last Admin: 08/15/23 08:25 Dose: 15 mg Documented By: Admin: 08/15/23 00:46 Dose: 15 mg Documented By: DEE DEE Admin: 08/14/23 18:45 Dose: 15 mg Documented By: ENID Oxycodone HCl (Oxycodone Hcl Ir 5 Mg Tab (Immediate Release)) 5 mg PO Q6H PRN PRN Reason: Severe Pain (Scale 7, 8, 9,10) Stop: 08/28/23 18:07 Last Admin: 08/15/23 11:16 Dose: 5 mg Documented By: Admin: 08/14/23 21:45 Dose: 5 mg Documented By: DEE DEE Umeclidinium Ovalo (Umeclidinium Ovalo 62.5mcg/Blister 7 Puffs/Inhaler) 1 puffs INH QAM HERB Stop: 09/14/23 08:59 Last Admin: 08/15/23 08:53 Dose: 1 puffs Documented By: MK Discontinued Medications Bupivacaine HCl (Bupivacaine/Epinephrine 0.5% 1:200,000 1.8 Ml Carp) Confirm Administered Dose 10.8 ml .ROUTE .[facility] Stop: 08/15/23 15:35 Last Admin: 08/15/23 15:58 Dose: 3.6 ml Documented By: JAZZ Chlorhexidine Gluconate (Chlorhexidine Gluconate 0.12% 480 Ml) Confirm Administered Dose 480 ml MT .[facility] ONE Stop: 08/15/23 15:35 Last Admin: 08/15/23 15:55 Dose: 480 ml Documented By: JAZZ Ceftriaxone Sodium (Rocephin) 2,000 mg in 50 mls @ 100 mls/hr IV Q24H [facility] Stop: 08/14/23 16:44 Last Infusion: 08/14/23 17:02 Dose: Infused Documented By: Admin: 08/14/23 16:32 Dose: 100 mls/hr Documented By: HS Metronidazole (Flagyl) 500 mg in 100 mls @ 100 mls/hr IV NOW STA; Protocol Stop: 08/14/23 17:04 Last Infusion: 08/14/23 18:06 Dose: Infused Documented By: Admin: 08/14/23 17:06 Dose: 100 mls/hr Documented By: HS Lactated Ringer's (Lr) 1,000 mls @ 15 mls/hr IV .Q24H [facility] Stop: 09/14/23 14:44 Last Infusion: 08/15/23 15:36 Dose: Infused Documented By: Admin: 08/15/23 14:40 Dose: 15 mls/hr Documented By: OFE Ioversol (Optiray 320 100ml) 92 ml IV ONCE ONE Stop: 08/14/23 16:21 Last Admin: 08/14/23 16:20 Dose: 92 ml Documented By: BRADK Ketorolac Tromethamine (Ketorolac 30 Mg/Ml Vial) Confirm Administered Dose 30 mg .ROUTE .[facility] Stop: 08/15/23 14:58 Last Admin: 08/15/23 14:59 Dose: 15 mg Documented By: WONG Ketorolac Tromethamine (Ketorolac Tromethamine 15 Mg/Ml Vial) 15 mg IV NOW ONE Stop: 08/15/23 15:02 Last Admin: 08/15/23 14:59 Dose: Not Given Documented By: WONG Morphine Sulfate (Morphine Sulfate 4 Mg/Ml 1 Ml Carp\Vial) 4 mg IV NOW STA Stop: 08/14/23 15:50 Last Admin: 08/14/23 15:57 Dose: 4 mg Documented By: HS Ondansetron HCl (Ondansetron Inj 2 Mg/Ml 2 Ml Vial) 4 mg IV NOW STA Stop: 08/14/23 15:50 Last Admin: 08/14/23 15:57 Dose: 4 mg Documented By: ENID (3) COPD (chronic obstructive pulmonary disease) COPD type: unspecified COPD Qualified Code(s): J44.9 - Chronic obstructive pulmonary disease, unspecified (5) GERD (gastroesophageal reflux disease) Esophagitis presence: esophagitis presence not specified Qualified Code(s): K21.9 - Gastro-esophageal reflux disease without esophagitis
[2023-08-16 07:21] LABS: Hematocrit (blood only) 36.8 % (37.0-47.0); Hemoglobin 12.6 g/dl (12.0-16.0); Mean Corpuscular Hemoglobin 32.8 pg (25.0-34.0); Mean Corpuscular Hgb Conc 34.2 g/dL (32.0-36.0); Mean Corpuscular Volume 95.8 fL (80.0-100.0); Mean Platelet Volume 9.7 fL (9.4-12.4); Platelet Count 342 K/uL (130-400); RDW Coefficient of Variation 11.9 % (11.5-14.5); RDW Standard Deviation 41.8 fL (36.4-46.3); Red Blood Count 3.84 M/uL (4.20-5.40); White Blood Count 11.68 K/ul (4.8-10.8)
[2023-08-16 08:08] LABS: Calcium 8.5 mg/dl (8.6-10.3); Potassium 4.1 mmol/L (3.5-5.1)
[2023-08-16 08:14] LABS: Creatinine Clr Calc Pharmacy 165.7 ml/min; Est GFR (African American) 139.3 ml/min; Est GFR (Non-African American) 120.2 ml/min
[2023-08-16] MEDS: ADVANCED PROBIOTIC 625 MG CAPSULE PO SCH (08:37)
--- NOTE | 2023-08-16 11:18 | Discharge Summary ---
Date of Service August 16, 2023 Admission HPI Per Admitting Provider This is a 42yo F with a PMH of COPD, GERD s/p Rachele fundoplication, anxiety and other medical problems listed below who presents with dental pain x 3 days. Pain is on left side near jaw but pain has expanded throughout left side up to jew and down under her chin. Went to Acute Care on Tuesday and was given penicillin PO 500mg BID. Over the weekend, throbbing pain became constant and more severe, prompting presentation to ED. Fever for past 2 days, Tmax of 102 F. Unable to chew or tolerate PO foods. Only able to drink 1/2 can of tomato soup today. Hurts to swallow. Difficult to sleep. Does not currently have a dentist. No CP, SOB, N/V, abdominal pain, dysuria, diarrhea or constipation. Admission Exam Per Admitting Provider General: Lying comfortably in bed, not in acute distress, on room air HEENT: EOMI, TESSA, MMM, dental caries Chest: Clear breath sounds bilaterally, no wheezes or crackles CVS: Regular rate and rhythm, normal heart sounds, no murmur Abdomen: Soft, non tender, not distended, normal bowel sounds Neuro: Awake, alert, oriented, conversing well, non focal Extremities: No cyanosis, clubbing or edema Psych: Calm, cooperative Principal Diagnosis Dental Abscess, Hemimandibular Cellulitis Discharge Exam General: Vitals as above, NAD, sitting up in bed, pleasant, conversing appropriately. A+Ox3, euthymic affect. HEENT: PERRL, EOMI, conjunctivae normal, anicteric sclerae, mucous membranes moist. Swelling of L mandibular region significantly reduced, pain significantly improved. Respiratory: Normal respiratory effort, lungs clear to auscultation, no wheeze, rales, rhonchi. No accessory muscle use. Cardiovascular: Regular rate, rhythm, no murmur, normal peripheral pulses, no BLE edema. Vessels: No JVD. Abdomen/GI: Normal bowel sounds, soft, nontender, no hepatosplenomegaly. Extremities/Musculoskeletal: No cyanosis or clubbing, extremities motor strength intact, moves all extremities. Neurologic: Accommodation nl, no face palsy, no dysarthria, CN's II-XI not formally tested but appear intact bilaterally. Skin: No rashes, warm/dry, no overlying erythema of L mandibular region. Discharge Data Allergies Allergy/AdvReac Type Severity Reaction Status Date / Time azithromycin AdvReac Intermediate Gastrointestinal Verified 08/14/23 16:52 Upset Consultations 08/14/23 16:52 Consult Oromaxillofacial Surgery Routine Procedures Performed Operation Date: 08/15/23 09:30 Actual Procedures p and Extraction #18(Not Applicable) - Randal Yates DMD s Incision, Drainage (Not Applicable) - Randal Yates DMD Ordered Studies 08/14/23 15:49 CT soft tissue neck w con Stat Hospital Course (1) Dental abscess: (2) Pain, dental: (3) COPD (chronic obstructive pulmonary disease): (4) Anxiety: (5) GERD (gastroesophageal reflux disease): Plan Periapical Dental Abscess Hemimandibular Cellulitis Dental Pain/Discomfort Nancy Miles is a 42y/o F with PMHx of COPD, GERD s/p Rachele fundoplication, anxiety and other medical problems listed below who presented to the ED on 08/13 with dental pain x 3 days and was found to have dental carries with a periapical abscess and hemimandibular cellulitis. Patient underwent I&D + extraction of tooth #[address] Yates; patient is reporting sig nificant improvement in her pain and L mandibular swelling. She is still afebrile, WBC 11.98K --> 8.53K --> 11.68 today, procalcitonin negative. Patient was transitioned from IV Rocephin+Flagyl in the ED to IV Unasyn at time of admission; she will be sent home on a 7-day course of oral Augmentin. Patient advised to take OTC pain medications, such as Tylenol or Motrin, at time of discharge. She will need to follow-up with both Dr. Yates and her PCP in the outpatient setting following discharge today. COPD: Patient to continue Spiriva and PRN albuterol at time of discharge. Anxiety: Patient uses medical marijuana at home. GERD: H/O Rachele fundoplication; not currently on PPI regimen/therapy. PCP: Beata Lopez PA-C Disposition: Patient is being discharged to home today. Will need to follow-up with Dr. Yates and her PCP following discharge. Patient seen in collaboration with Dr. Canela. Please see addendum. I spent a total of 45 minutes coordinating, documenting, and providing care for this patient excluding time spent in the performance of separately billed services. This included personally reviewing all current laboratories and imaging studies, medical reconciliation, outpatient chart review and discussion with specialists. This chart was completed in part utilizing Speech Voice Recognition Software. Grammatical errors, random word insertions, pronoun errors, and incomplete sentences are an occasional consequence of this system due to software limitations, ambient noise, and hardware issues. Any formal questions or concerns about the content, text, or information contained within the body of this dictation should be directly addressed to the provider for clarification. Home Health Attestation I certify that this patient is under my care and that I, or a physicians shipping and receiving assistant working with me, had a face to-face encounter that meets the home health [id number]-[id number] encounter requirements with this patient. The encounter with the patient was in whole, or in part, for the following medical condition, which is the primary reason for home health care (list medical condition): I certify that, based on my findings, the following services are medically necessary home health services: My clinical findings support the need for the above services because: Further, I certify that my clinical findings support that this patient is homebound (i.e. absences from home require considerable and taxing effort and are for medical reasons or religion services or infrequently or of short duration when for other reasons) because: Certification for Home Health Services: Based on the above findings, I certify that this patient is confined to the home and needs intermittent longterm care, physical therapy and/or speech therapy or continues to need occupational therapy. The patient is under my care, and I have initiated the establishment of the plan of care. This patient will be followed by a physician who will periodically review the plan of care. Total Time Total Time Spent Total Time Spent (In Minutes): 45 Discharge Plan Discharge Items Patient Disposition: Home - Self-Care Reason For Visit: DENTAL ABSCESS Discharge Diagnosis: Dental Abscess, Hemimandibular Cellulitis Condition on Discharge: Good Activity: Resume your previous activity Lifting: Gradually increase as tolerated Bathing: No limitations Exercise/Sports: Gradually increase as tolerated Driving/Machine Use: Resume 1 day after discharge Weightbearing: Full weightbearing Non-emergency contact: Primary Care Provider Call non-emergency contact if: you have any medication questions, your symptoms worsen, your pain is not controlled, you have a fever, your wound has increased redness, your wound has increased drainage and your wound pain has increased Follow-up/Referrals: eBata Lopez PA-C [Primary Care Provider] - 08/22/23 9:40 am (Date & Time 08/22/2023 9:40 AM Provider Damian Puentes MD Department Family Medicine [facility] ) Randal Yates, NOEL [Physician] - Diet: Regular Diet Texture: Easy to Chew Addtl Attending Provider Instructions: You were admitted to the hospital for management of a dental abscess. You underwent an incision and drainage procedure + extraction of tooth #18 for treatment of the abscess yesterday (08/15) with Dr. Yates. You received IV antibiotics while you were admitted. We will be sending you home on the following oral antibiotic: Augmentin. Please take the oral Augmentin as prescribed for the next 7 days. You can take aaxx-hug-dodconf pain medications, such as Tylenol or Motrin, as needed. Please follow-up with your primary care provider (PCP) next week. You are scheduled to see your PCP at 9:40AM on Tuesday, July 22. Please also follow-up with Dr. Yates; his office will be contacting you soon to schedule a follow-up appointment. Seek medical attention if you have: * temperature above 101 * chest pain or trouble breathing * abdominal pain, nausea, vomiting * diarrhea, dark stools or bloody stools * any unanswered questions or concerns Call 911 if symptoms are severe. Please take good care of yourself! It has been a pleasure taking care of you. Please take care of yourself. If you have any questions regarding your recent hospitalization please contact [facility] and request [facility] @ [phone]. ADDITIONAL ACTIVITY RECOMMENDATIONS: * [place] teeth after every meal. It is very important to keep your mouth clean to prevent infection. * Starting tonight rinse with the Peridex as directed then 2 x a day * it is very important to keep well hydrated, this prevents fever and possible dry socket pain SPECIAL CARE INSTRUCTIONS: *It is not uncommon that between day 2-4 that your swelling will be at its worst this is very normal, do not be alarmed. * Tomorrow start rinsing your mouth with 1/2 teaspoon salt in 8 ounces warm water. This rinse should be used every 4-6 hours. * You may experience slight nausea. To prevent this, never take your medication on an empty stomach. If nauseated, take small sips of radames thao until you feel better; then you may start on applesauce and toast. * Some swelling is common. It should gradually decrease within 4-5 days. * A certain amount of bleeding is to be expected. It is often possible to control mild oozing by placing folded gauze over the area and biting down for 30 minutes. If you are unable to control excessive bleeding, call Dr Yates at [phone] * You may experience some discomfort for a few days. If pain or swelling increases, Call Dr Yates * Return to the office for a follow up check up on: * [facility] phone # [phone] Pending Studies at Discharge: No Stand-Alone Forms: My [facility] Cryptonator, Work/School Release, Smoking Cessation Medications and DC Order Prescriptions: New amoxicillin-pot clavulanate 875-125 mg tablet 1 tab PO BID 7 Days Qty: 14 0RF Probiotic 3 billion cell capsule 3,000 mmu cells PO DAILY 7 Days Qty: 7 0RF Rx Instructions: administer with a meal Continued Spiriva Respimat 1.25 mcg/actuation mist 2 puff inhalation QAM Rx Instructions: PER PT "BEEN OUT OF THIS MED, NEED TO REFILL". albuterol sulfate 90 mcg/actuation HFA aerosol inhaler 90 mcg INHALATION DIRECTED PRN (Reason: Shortness Of Breath Or Wheezing) [facility] 1 dose inhalation UD PRN (Reason: anxiety/ptsd) Patient Comments: vape or gummy. Rx Instructions: VAPS, SMOKES, GUMMIES Discontinued penicillin V potassium 500 mg tablet 500 mg PO BID Rx Instructions: STARTED 08/12/23 FOR 7 DAYS Discharge Orders: Discharge Order (Routine); Ordered 08/16/23 Ordered By: Teressa Garcia/Other Patient Handouts: Dental Abscess Admission Data Admit Date/Time: 08/14/23 16:52 Attending Provider: Leif Canela Admit Provider: Derek Dior Primary Care Provider: Beata Lopez Other Providers: Randal Yates Other Interventions: Discharge Summary Assessment (RN) Last Done: 08/16/23 12:41 Supervising Physician Co-Signing Physician Notes Patient was seen and examined at bedside as a follow-up of periapical dental abscess #18, hemimandibular cellulitis, dental pain/discomfort. OMFS on board, s/p I&D + extraction of #18 on 08/14, pt reports swelling/pain/discomfort getting significantly better. Continue with Augmentin on DC, 7 days therapy per OFMS, add probiotic. Pt advised soft diet. On exam, patient on room air, left facial swelling noted, heart/lung/abdomen examination WNL. Rest of the examination as above. I have seen and examined the patient and have discussed the case with the provider above. I agree with the assessment and plan as stated.
--- NOTE | 2023-08-16 12:38 | Oral/Maxillofacial Progress Nt ---
Date of Service August 16, 2023 Assessment & Plan Admission and Anticipated Discharge Date Admission Date: August 14, 2023 Subjective POST OP NOTE at 24 hours The patient is doing very well post operatively. No pain and minimal swelling as expected. Tissue tone =healthy normal tissue No sinus or nerve complications noted Excellent ROM Sutures in place Infection responded well to I&D, IV anabiotics and extraction # 18 Reviewed oral care Reviewed diet, massage, exercise and continued home/oral care RTC as needed Overall: Excellent healing from recent oral surgery OK for discharge Results & Data Vital Signs (Past 12 Hours) Vital Signs Temp Pulse Pulse Resp BP Pulse Ox O2 Del Method 08/16/23 08:00 36.8 C 48 L 18 128/78 98 Room Air 08/16/23 04:00 36.6 C 54 L 16 119/70 98 Room Air PG Care Time/CCT Total # of Minutes Spent Total Time Spent with Patient: Total time spent is greater than 50% in coordination of care (as documented) at patient's floor/unit and/or counseling patient: Coding Level of Care Code None
--- NOTE | 2023-08-20 20:37 | Operative Report ---
JANET Post Operative Report Pre & Post Diagnosis Operation Date: 08/15/23 09:30 Pre-Op Diagnosis: (1) Dental infection: (2) Cellulitis of face: (3) Pain, dental: (4) Dental abscess: Post-Op Diagnosis: (1) Dental infection: (2) Cellulitis of face: (3) Pain, dental: (4) Dental abscess: I identified the patient and participated in the time-out.: Yes Procedure Operation Date: 08/15/23 09:30 Actual Procedures p and Extraction #18(Not Applicable) - Randal Yates DMD s Incision, Drainage (Not Applicable) - Randal Yates DMD Surgeon Randal Yates DMD Patch Finisher none Estimated Blood Loss 3 Findings Consistent with Post-Op Diagnosis Specimens none Drains none Anesthesia Type General Complications none Disposition Accompanied Patient To Recovery: Yes Indications acute facial infection Description of Procedure Secondary to increasing pain/swelling/drainage from my infected teeth lower left # 18 . Symptoms have been ongoing for a while. This is a 42yo F with a PMH of COPD, GERD s/p Rachele fundoplication, anxiety and other medical problems listed below who presents with dental pain x 3 days found to have dental carries with periapical abscess and hemimandibular cellulitis. Splenectomy patient-immunocompromised Actual Procedures p Incision and Drainage left Submandibular and masseter space Abscess; Removal of Tooth #18(Not Applicable) - Randal Yates DMD CPT 56171 all source intelligence analyst space abscess D7210 x 1 surgical extraction # 18 Once cleared for surgery general anesthesia was achieved, the eyes were protected by the anesthesia dept criteria. A time out was take for patient ID, antibiotics, equipment and position verification once all agreed the procedure began. Local anesthesia using Marcaine with a vasoconstrictor ( 1.8 ml per site) given into right inferior alveolar nerve A throat pack was placed after the oral cavity was irrigated with saline. Once a surgical level of anesthesia was obtained and the local anesthesia was given time for the blocks the surgery was started. I turned my attention to the infection which was located in the floor of the mouth and submandibular/masseter area. The tongue was elevated and there was also swelling associated with tooth # 18 ( see CT scan report) Incision and Drainage CPT 44989 all source intelligence analyst space abscess Using a 15 blade an incision was made lateral to the alveolar ridge and medial to the vestibular fold and cheek. Once the incision was made a lot of pus extruded from the site. A curved hemostat was carefully placed into the infected space along the lateral side of the lower jaw and into the submandibular and posterior into the masseter space. Some further drainage was now allowed to escape. I palpated the chin,submandibular and cheek area and no further drainage was expressed. The area was irrigated with at least 100 ml of NS solution. I now turned my attention to remove the # 18 tooth. Lower # 18 D7210 The full thick Muco-periosteal flap was made on the facial aspect from # 17-20. The flap was reflected to expose the the subperiosteal space the bone adjacent to # 18. The rogue was used to remove bone, the tooth was removed with a 301 elevator, the mental nerve was intact, there was a large amount of granulation tissue on the apex and some more pus that was expressed. I inspected the sites to insure all bleeding was controlled. I removed the throat pack and suctioned the throat. A gauze pressure dressings was placed. All instrument and sponge count was correct. The patient was allowed to awake from the anesthesia. Once full awake the anesthesia tube was removed and the patient was taken to the recovery room with all vital sign stable. The patient tolerated the surgery very well. I will follow the patient in my office, Rx and instructions will be given upon discharge. I attest to the content of the Intraoperative Record and any orders documented therein. Any exceptions are noted below.
== END 2023-08-16 16:12 | disposition home or self-care (01) ==
LOC: ED 15:01 → INTOOBSV 16:52 → 3N 16:52 → SUATTDRO 16:52 → 3N 20:05